=== PATIENT | female | born 1955 | race Two or more races ===

== ENCOUNTER 2016-09-24 01:06 | Inpatient (IN) | payer MEDICARE, MEDICAID ==
[~2016-09-24] VITALS: Ht 154.9 cm; Wt 88.0 kg
[~2016-09-24 01:06] MED LIST: BENA20TA2 PO; FURO40TA5 PO; LEVO50TA8 PO; MYCO500T PO; OMEP20CA10 PO; SIMV40TA5 PO; TACR1CAP PO; TOPI50TA24 PO
--- NOTE | 2016-09-24 02:07 | NUR ---
Patient walked in to ER c/o chest pain for the past 40 minutes prior to arrival. Patient states the pain woke her from sleep. Patient is guamanian speaking only, and son at bedside. To room 5A, BILLY performed MSE.
[2016-09-24] MEDS ORDERED: PROGRAF 1 MG (02:10)
[2016-09-24] MEDS ORDERED: PAK SQ (02:10)
[2016-09-24] MEDS ORDERED: [UNRECOGNIZED DRUG - REMARK] (02:10)
[2016-09-24] MEDS ORDERED: VICTOZA SQ (02:10)
[2016-09-24] MEDS ORDERED: NITROGLYCERIN 0.4 MG/TAB BOTTLE SL ONE ×2 (02:15→02:24)
[2016-09-24] MEDS ORDERED: NITROGLYCERIN OINT 1 GM PACKET TP ONE ×2 (02:15→02:24)
[2016-09-24] MEDS ORDERED: ASPIRIN 81 MG TAB.CHEW PO ONE (02:15)
[2016-09-24 02:19] LABS: BASOPHILS # (AUTO) 0.1 K/uL (0.0-8.0); BASOPHILS % (AUTO) 0.6 % (0.0-2.0); EOSINOPHILS # (AUTO) 0.3 K/uL (0.0-0.7); EOSINOPHILS % (AUTO) 2.2 % (0.0-7.0); HEMATOCRIT 41.3 % (37-47); HEMOGLOBIN 13.4 G/DL (12.0-16.0); LYMPHOCYTES # (AUTO) 3.8 K/UL (0.8-4.8); LYMPHOCYTES % (AUTO) 28.4 % (20.5-51.5); MEAN CORPUSCULAR HEMOGLOBIN 26.5 UUG (27.0-31.0); MEAN CORPUSCULAR HGB CONC 33 g/dL (32.0-37.0); MEAN CORPUSCULAR VOLUME 81.4 FL (81.0-99.0); MONOCYTES % (AUTO) 7.3 % (0.0-11.0); NEUTROPHILS # (AUTO) 8.3 K/UL (1.8-8.9); NEUTROPHILS % (AUTO) 61.5 % (38.5-71.5); PLATELET COUNT (AUTO) 324 K/UL (150-450); RED BLOOD CELL COUNT(AUTO) 5.07 MIL/UL (4.2-5.4); WHITE BLOOD COUNT (AUTO) 13.5 K/UL (4.0-11.2)
[2016-09-24] MEDS ORDERED: ASPIRIN 81 MG TAB.CHEW ONE (02:24)
[2016-09-24] MEDS ORDERED: HYDROMORPHONE 1 MG/1 ML DISP.SYRIN IV ONE (02:45)
[2016-09-24] MEDS ORDERED: ONDANSETRON IV *ER 4 MG/2 ML VIAL IV ONE (02:45)
[2016-09-24 02:50] LABS: BILIRUBIN,DIRECT 0.1 mg/dL (0.0-0.2); BILIRUBIN,TOTAL 0.5 mg/dL (0.2-1.0); CREATININE 0.9 mg/dL (0.6-1.3); POTASSIUM 3.8 mmol/L (3.5-5.1); TOTAL PROTEIN, SERUM 8.5 g/dL (6.4-8.2)
[2016-09-24] MEDS ORDERED: HYDROMORPHONE 2 MG/1 ML DISP.SYRIN ONE (02:55)
[2016-09-24] MEDS ORDERED: ONDANSETRON 4 MG/2 ML VIAL ONE (02:56)
--- NOTE | 2016-09-24 03:13 | NUR ---
Call placed to [facility] nephrology, Dr. ARNETT will be paged.
--- NOTE | 2016-09-24 03:55 | NUR ---
Received admission report from KAYLIN Monet from ER.
[2016-09-24] MEDS ORDERED: IV NORMAL SALINE 500 ML IV ONE ×2 (04:06→12:15)
[2016-09-24] MEDS ORDERED: LEVOFLOXACIN 500 MG/D5W 100 ML ONE (04:12)
[2016-09-24] MEDS ORDERED: LEVOFLOXACIN 500 MG/D5W 500 MG in PREMIXED 1 EACH IV SCH (04:15)
[2016-09-24 05:05] VITALS: BP 96/57
--- NOTE | 2016-09-24 05:10 | NUR ---
Admitted patient from ER via guerney, accompanied by and son to interpret. Awake, East Timorese speaking, who denies CP/pain/discomforts at this time. Routine admission care done. Plan of care initiated.
--- NOTE | 2016-09-24 05:12 | NUR ---
Pt. admitted to TELE, under care of Dr. ARNETT Belongs List completed
--- NOTE | 2016-09-24 06:30 | NUR ---
Left message for Dr. Shanks for admitting orders. Awaiting MD to call back.
--- NOTE | 2016-09-24 07:42 | NUR ---
RECEIVED PATIENT IN BED AWAKE ALERT AND ORIENTED WITH O2 IN PROGRESS AT 3L/M WITH NO S/S OF SHORTNESS OF BREATH AT THIS TIME.DENIES PAIN OR DISCOMFORTS AT THIS TIME.TELE MONITORING IN PROGERSS SINUS WITH NO ECTOPY.AWAITING FOR RETURN CALL FROM THE RENAL GROUP TO RECONCILE MEDICATIONS AT THIS TIME.
--- NOTE | 2016-09-24 07:57 | NUR ---
CALL RECEIVED FROM DR ARNETT WITH NEW ORDERS AND NOTED.
--- NOTE | 2016-09-24 08:30 | NUR ---
PATIENT STATED THAT SHE FELT ITCHING ON HER ARM AND HEAD STATED THAT IT MIGHT BE AN ALLERGIC REACTION FROM THE LEVAQUIN SON AND AT THE BEDSIDE AND STATED THAT SHE WAS ALLERGIC TO SOME MEDICATION AT ANOTHER HOSPITAL BUT DOES NOT KNOW THE NAME. ACCESSED PATIENT NOTED MINIMAL SCRATCH ON HER RIGHT ARM BUT NO OTHER REDNESS OR SCRATCHES AT THIS TIME.PATIENT STATED THAT THE ITCHING WAS FOR A VERY SHORT PERIOD AND HAS SINCE STOPPED.PATIENT INFORMED THAT I WILL NOTIFY THE DOCTOR ABOUT THIS AND WILL CONTINUE TO OBSERVE AND FOR HER TO LET ME KNOW IF THE ITCHING REOCCURS AND THEY EXPRESSED UNDERSTANDING.
[2016-09-24] MEDS ORDERED: TACROLIMUS ANHYDROUS 1 MG CAPSULE PO SCH ×3 (09:30→21:00)
[2016-09-24] MEDS: MYCOPHENOLATE MOFETIL 250 MG CAPSULE PO SCH ×2 (10:29→20:16)
[2016-09-24] MEDS: FUROSEMIDE 40 MG TABLET PO SCH (10:29)
[2016-09-24] MEDS: TOPIRAMATE 25 MG TABLET PO SCH ×2 (10:30→20:17)
--- NOTE | 2016-09-24 11:45 | NUR ---
DR SHANNAN EDWARD HERE TO SEE PATIENT AWARE THAT SHE HAD COMPLAINED OF THE LEVAQUIN WITH POSSIBLE ALLERGIC REACTION AND HE STATED THAT ITS NOT ALLERGIC REACTION PATIENT AWARE.
[2016-09-24] MEDS ORDERED: IV NS 1000 ML 1,000 ML IV PRN (11:46)
[2016-09-24 11:48] VITALS: BP 102/61
[2016-09-24] MEDS: PIPERACILLIN/TAZOBACTAM/D5W 3.375 G in PREMIXED 1 EACH IV SCH ×2 (12:18→20:07)
[2016-09-24] MEDS ORDERED: TACR0.5C GT (13:20)
[2016-09-24] MEDS: VICTOZA 18 MG/3 ML SQ SCH (14:05)
[2016-09-24] MEDS: PREFILLED SQ SCH (14:05)
[2016-09-24 16:12] VITALS: BP 108/71
[2016-09-24] MEDS: BENAZEPRIL HCL 20 MG TABLET PO SCH (16:12)
--- NOTE | 2016-09-24 18:00 | NUR ---
REMAIN ON IV ANTIBIOTICS ORDERED WITH NO ADVERSE OR ALLERGIC REACTIONS AT THIS TIME.RESTING COMFORTABLY.
--- NOTE | 2016-09-24 19:30 | NUR ---
Bedside reporting with USZANNE Antunez. Received patient out of bed, ambulating to the bathroom independently, steady gait. Denies any CP/SOB/SOBOE at this time. at bedside. Safety measures and fall precaution maintained. Continue care as planned.
[2016-09-24 20:00] VITALS: BP 100/59
[2016-09-24] MEDS ORDERED: TACROLIMUS ANHYDROUS 0.5 MG CAPSULE PO SCH (21:00)
[2016-09-24] MEDS ORDERED: SIMVASTATIN 40 MG TABLET PO SCH (21:00)
[2016-09-25] VITALS: BP 97/59
[2016-09-25] MEDS: PIPERACILLIN/TAZOBACTAM/D5W 3.375 G in PREMIXED 1 EACH IV SCH ×2 (04:05→12:07)
[2016-09-25] MEDS ORDERED: LEVOFLOXACIN 500 MG/D5W 500 MG in PREMIXED 1 EACH IV SCH (05:00)
[2016-09-25 05:28] VITALS: BP 102/53
--- NOTE | 2016-09-25 06:26 | NUR ---
Slept well. No complaint presented. Continue on IVPB ATB without s/s of adverse reaction noted. All needs attended and met. Continue care as planned.
[2016-09-25] MEDS ORDERED: LEVOTHYROXINE SODIUM 50 MCG TABLET PO SCH ×2 (07:00)
[2016-09-25] MEDS ORDERED: PANTOPRAZOLE SODIUM 40 MG TABLET.DR PO SCH (07:00)
--- NOTE | 2016-09-25 08:00 | NUR ---
AWAKE ALERT AND ORIENTED DENIES PAIN OR DISCOMFORTS AT THIS TIME REMAIN ON IV ANTIBIOTICS ORDERED WITH NO ADVERSE OR ALLERGIC REACTIONS AT THIS TIME.NOT IN DISTRESS AT THIS TIME.
[2016-09-25] MEDS: BENAZEPRIL HCL 20 MG TABLET PO SCH (09:00)
[2016-09-25] MEDS ORDERED: MISCELLANEOUS MED PO SCH (09:00)
[2016-09-25] MEDS ORDERED: TACROLIMUS ANHYDROUS 1 MG CAPSULE PO SCH (09:00)
[2016-09-25] MEDS: MYCOPHENOLATE MOFETIL 250 MG CAPSULE PO SCH (09:03)
[2016-09-25] MEDS: TOPIRAMATE 25 MG TABLET PO SCH (09:03)
[2016-09-25] MEDS: FUROSEMIDE 40 MG TABLET PO SCH (09:04)
[2016-09-25] MEDS: VICTOZA 18 MG/3 ML SQ SCH (09:07)
[2016-09-25] MEDS: PREFILLED SQ SCH (09:07)
[2016-09-25 11:45] VITALS: BP 111/65
--- NOTE | 2016-09-25 13:34 | NUR ---
DR MICHAEL HERE TO SEE PATIENT AWAITING FOR ORDERS PATIENT AND HER SON AT THE BEDSIDE AND ANXIOUS ABOUT GOING HOME TODAY.
[2016-09-25] MEDS ORDERED: AMOX-430 PO (13:36)
--- NOTE | 2016-09-25 13:45 | NUR ---
ORDER TO DISCHARGE PATIENT HOME TODAY RECEIVED AND CARRIES OUT.PATIENTS LUANN JEREZ IS AT THE BEDSIDE AND STATED WILL DRIVE HIS MOM HOME.
--- NOTE | 2016-09-25 14:15 | NUR ---
PATIENT DISCHARGED PICKED UP BY HER SON ART IN SATISFACTORY CONDITION WITH DISCHARGE INSTRUCTIONS AND PRESCRIPTIONS AND PATIENT INSTRUCTED TO CONTINUE TAKING HER MEDICATIONS ORDERED AND CALL HER PRIMARY DOCTOR FOR A FOLLOW UP APPOINTMENT WITHIN THE NEXT ONE TO TWO WEEKS AND THEY EXPRESSED UNDERSTANDING.
== END 2016-09-25 14:15 | disposition home or self-care (01) | DRG 178 ==
LOC: ER 01:09 → TELE 04:02 → MED 09-25 12:25
PROVIDERS: ADMIT Internal Medicine; ATTEND Internal Medicine Nephrology
DX: J69.0 Pneumonitis due to inhalation of food and vomit (principal); Z94.0 Kidney transplant status; I95.2 Hypotension due to drugs; K21.9 Gastro-esophageal reflux disease without esophagitis; Z85.3 Personal history of malignant neoplasm of breast; Z90.11 Acquired absence of right breast and nipple; Z79.899 Other long term (current) drug therapy; E11.9 Type 2 diabetes mellitus without complications; T46.3X5A Adverse effect of coronary vasodilators, initial encounter; Y92.230 Patient room in hospital as the place of occurrence of the external cause
CPT/HCPCS: 36415; 70030-TC; 71010; 84443; 85025; 85730; 87040; 93005; 93307; A4663; J1170; J1956; J2405; J2543; J7040; J7050; J7507; J7517

== ENCOUNTER 2018-07-22 18:12 | Inpatient (IN) | payer MEDICARE, MEDICAID ==
[~2018-07-22] VITALS: Ht 154.9 cm; Wt 86.2 kg
[~2018-07-22 18:12] MED LIST changes: +AMOX-430 PO; -BENA20TA2 PO; +BENA20TA9 PO; +PAK SQ; +TACR0.5C GT; +VICTOZA SQ
--- NOTE | 2018-07-22 18:22 | NUR ---
PT A/OX4, PRESENTS TO THE ER W/ SON, C/O GLF X 3 DAYS AGO. PT REPORTS SHE HIT THE BACK OF HER HEAD FROM THE FALL, BUT DENIES LOC. PT ALSO C/O HEADACHE, N/V. VS WNL. PT DENIES C/P, SOB.
--- NOTE | 2018-07-22 18:23 | NUR ---
KAN MAIER AT BEDSIDE FOR MSE.
--- NOTE | 2018-07-22 18:42 | NUR ---
PT TAKEN TO RADIOLOGY FOR CT SCAN.
[2018-07-22 18:49] LABS: BASOPHILS # (AUTO) 0.1 K/uL (0.0-8.0); BASOPHILS % (AUTO) 0.5 % (0.0-2.0); EOSINOPHILS # (AUTO) 0.2 K/uL (0.0-0.7); EOSINOPHILS % (AUTO) 1.7 % (0.0-7.0); HEMATOCRIT 35.6 % (31.2-41.9); HEMOGLOBIN 11.2 g/dL (10.9-14.3); LYMPHOCYTES # (AUTO) 3.6 K/uL (20.0-40.0); LYMPHOCYTES % (AUTO) 29.1 % (20.5-51.5); MEAN CORPUSCULAR HEMOGLOBIN 25.8 uug (24.7-32.8); MEAN CORPUSCULAR HGB CONC 31 g/dL (32.3-35.6); MONOCYTES # (AUTO) 1.1 K/uL (2.0-10.0); MONOCYTES % (AUTO) 9.2 % (0.0-11.0); NEUTROPHILS # (AUTO) 7.4 K/uL (1.8-8.9); NEUTROPHILS % (AUTO) 59.5 % (38.5-71.5); PLATELET COUNT (AUTO) 327 K/uL (179-408); RED BLOOD CELL COUNT(AUTO) 4.35 MIL/uL (3.63-4.92); WHITE BLOOD COUNT (AUTO) 12.5 K/uL (3.8-11.8)
--- NOTE | 2018-07-22 18:55 | NUR ---
PT BACK IN ER FROM RADIOLOGY.
--- NOTE | 2018-07-22 19:12 | NUR ---
SHIFT REPORT GIVEN TO CAMMY Goff RN.
[2018-07-22] MEDS ORDERED: IV NORMAL SALINE 500 ML BAG IV ONE (19:15)
[2018-07-22 19:38] LABS: *BILIRUBIN,URIN NEGATIVE (NEGATIVE); *CLARITY,URINE CLEAR (CLEAR); *COLOR,URINE YELLOW (YELLOW); *KETONES,URINE NEGATIVE (NEGATIVE); *UROBILINOGEN,URINE 0.2 E.U./dl (NORMAL); LEUKOCYTE ESTERASE ,URINE 1+ (NEGATIVE); NITRITE, URINE NEGATIVE (NEGATIVE); UGLUCOSE NEGATIVE (NEGATIVE)
[2018-07-22 19:39] LABS: *BLOOD, URINE TRACE (NEGATIVE)
--- NOTE | 2018-07-22 19:40 | NUR ---
pt back from ct is alert and oriented overall appearances fair stated she fell a few days again trying to go to the br at night don't remember anything from this incident is c/o chavarria will inform md family at bedside comfort and safety maintained
[2018-07-22 19:45] LABS: BACTERIA,URINE FEW /HPF (NONE SEEN); RBC,URINE 0-3 /HPF (0-3); SQUAMOUS EPITHELIAL CELL,UR MODERATE /HPF (NONE SEEN)
[2018-07-22 19:50] LABS: ALANINE AMINOTRANSFERASE 27 U/L (14-59); ALKALINE PHOSPHATASE 102 U/L (50-136); ASPARTATE AMINOTRANSFERASE 9 U/L (15-37); BILIRUBIN,DIRECT < 0.1 mg/dL (0.0-0.2); BILIRUBIN,TOTAL 0.2 mg/dL (0.2-1.0); TOTAL PROTEIN, SERUM 7.6 g/dL (6.4-8.2)
[2018-07-22] MEDS ORDERED: ACETAMINOPHEN ES 500 MG TABLET ONE (20:10)
[2018-07-22] MEDS ORDERED: ACETAMINOPHEN ES 500 MG TABLET PO ONE (20:15)
[2018-07-22] MEDS ORDERED: OMEP40CA37 PO (20:36)
[2018-07-22] MEDS ORDERED: DULA1.5P SQ (20:36)
[2018-07-22] MEDS ORDERED: SITA50TA PO (20:36)
[2018-07-22] MEDS ORDERED: MYCO500T PO (20:36)
[2018-07-22] MEDS ORDERED: PRED2.5T PO (20:36)
[2018-07-22] MEDS ORDERED: TACR1CAP PO (20:36)
--- NOTE | 2018-07-22 21:12 | NUR ---
was med time one with tylenol earlier denies allergy with effect comfort and safety maintained
--- NOTE | 2018-07-22 21:45 | NUR ---
report given to nurse all questions answered pt condition remains stable
--- NOTE | 2018-07-22 21:50 | NUR ---
pt transfer to room 317 via dmitri all personal belongings with pt family at her side
[2018-07-22] MEDS ORDERED: ACETAMINOPHEN 325 MG TABLET PO PRN (22:00)
[2018-07-22] MEDS ORDERED: ONDANSETRON 4 MG/2 ML VIAL IV PRN (22:00)
--- NOTE | 2018-07-22 22:00 | NUR ---
Received patient awake, alert and oriented x 4, able to ambulate with assist. Patient indonesian speaking only. On room air, tolerated. With IV access on left antecubital vein, 20g, patent and intact. No complaints at the moment. Patient brought home medications with her will send to pharmacy in the morning. Patient oriented to unit with help of indonesian speaking INBOUND CUSTOMER SERVICE AGENT. Bed in low position, locked, side rails up x 2 for safety, call light within reach. Noise and lights subdued. Will continue to monitor.
[2018-07-22 22:27] VITALS: BP 163/79
[2018-07-23 00:09] VITALS: BP 134/67
[2018-07-23] MEDS ORDERED: CEphaleXIN 500 MG CAPSULE ONE (00:50)
[2018-07-23] MEDS ORDERED: CEphaleXIN 500 MG CAPSULE PO ONE (01:45)
[2018-07-23 04:24] VITALS: BP 126/70
--- NOTE | 2018-07-23 06:10 | NUR ---
Patient slept well throughout the night, afebrile and no complaints made. Patient was given one dose of Keflex last night per Dr. Frias from ED for UTI. Attended all needs. Ensured safety and comfort.
[2018-07-23 06:13] LABS: BASOPHILS # (AUTO) 0.1 K/uL (0.0-8.0); BASOPHILS % (AUTO) 0.7 % (0.0-2.0); EOSINOPHILS # (AUTO) 0.4 K/uL (0.0-0.7); EOSINOPHILS % (AUTO) 3.9 % (0.0-7.0); HEMATOCRIT 37.6 % (31.2-41.9); HEMOGLOBIN 11.6 g/dL (10.9-14.3); LYMPHOCYTES # (AUTO) 3.1 K/uL (20.0-40.0); LYMPHOCYTES % (AUTO) 29.2 % (20.5-51.5); MEAN CORPUSCULAR HEMOGLOBIN 25.5 uug (24.7-32.8); MEAN CORPUSCULAR HGB CONC 31 g/dL (32.3-35.6); MEAN CORPUSCULAR VOLUME 82.4 fL (75.5-95.3); MONOCYTES # (AUTO) 1.1 K/uL (2.0-10.0); MONOCYTES % (AUTO) 10.2 % (0.0-11.0); NEUTROPHILS # (AUTO) 5.9 K/uL (1.8-8.9); PLATELET COUNT (AUTO) 321 K/uL (179-408); RED BLOOD CELL COUNT(AUTO) 4.56 MIL/uL (3.63-4.92); WHITE BLOOD COUNT (AUTO) 10.6 K/uL (3.8-11.8)
[2018-07-23 06:28] LABS: MAGNESIUM 1.8 mg/dL (1.8-2.4); PHOSPHOROUS 4.1 mg/dL (2.5-4.9)
[2018-07-23] MEDS ORDERED: LEVOTHYROXINE SODIUM 100 MCG TABLET PO SCH (07:00)
[2018-07-23] MEDS ORDERED: predniSONE 5 MG TABLET PO SCH (09:00)
[2018-07-23] MEDS ORDERED: TACROLIMUS ANHYDROUS 0.5 MG CAPSULE PO SCH (09:00)
[2018-07-23] MEDS ORDERED: MYCOPHENOLATE MOFETIL 250 MG CAPSULE PO SCH (09:00)
--- NOTE | 2018-07-23 11:00 | NUR ---
RECEIVED DISCHARGE ORDER FOR PATIENT AND PATIENT DISCHARGE VIA PRIVATE CAR WITH , DISCHARGE INSTRUCTIONS GIVEN TO PATIENT AND VERBALIZED UNDERSTANDING, IV AND ID BAND REMOVED, NO SOB NOTED AT THIS TIME AND NO C/O PAIN AT THIS TIME. BELONGINGS AND MEDICATIONS ACCOUNTED FOR SIGNED. QUESTIONS AND CONCERNS ADDRESSED.
== END 2018-07-23 11:00 | disposition home health service (06) | DRG 74 ==
LOC: ER 18:12 → TELE3 21:24
PROVIDERS: ADMIT Internal Medicine; ATTEND Internal Medicine Nephrology
DX: G90.8 Other disorders of autonomic nervous system (principal); Z94.0 Kidney transplant status; E11.9 Type 2 diabetes mellitus without complications; Z90.11 Acquired absence of right breast and nipple; Z79.890 Hormone replacement therapy; Z85.3 Personal history of malignant neoplasm of breast; Z79.899 Other long term (current) drug therapy; K21.9 Gastro-esophageal reflux disease without esophagitis; I11.0 Hypertensive heart disease with heart failure; I50.9 Heart failure, unspecified; R29.6 Repeated falls; R42 Dizziness and giddiness; Z79.84 Long term (current) use of oral hypoglycemic drugs; D18.09 Hemangioma of other sites; Z68.35 Body mass index [BMI] 35.0-35.9, adult; R51 Headache; F32.9 Major depressive disorder, single episode, unspecified
CPT/HCPCS: 36415; 70030-TC; 70450; 71045; 72125; 83605; 83735; 84100; 85025; 85730; 87040; 87077; 87086; 93005; A4663; A9150; G0378; J7507; J7512; J7517

== ENCOUNTER 2019-05-11 17:50 | Inpatient (IN) | payer MEDICARE, OTHER ==
[~2019-05-11] VITALS: Ht 154.9 cm; Wt 85.3 kg
[2019-05-11] MEDS ORDERED: IV NORMAL SALINE 500 ML BAG IV ONE (18:00)
[2019-05-11 18:22] LABS: BASOPHILS % (AUTO) 0.3 % (0.0-2.0); EOSINOPHILS # (AUTO) 0.1 K/uL (0.0-0.7); EOSINOPHILS % (AUTO) 0.4 % (0.0-7.0); HEMOGLOBIN 10.9 g/dL (10.9-14.3); LYMPHOCYTES # (AUTO) 2.1 K/uL (20.0-40.0); LYMPHOCYTES % (AUTO) 15.4 % (20.5-51.5); MEAN CORPUSCULAR HEMOGLOBIN 25.9 uug (24.7-32.8); MEAN CORPUSCULAR HGB CONC 32 g/dL (32.3-35.6); MEAN CORPUSCULAR VOLUME 80.7 fL (75.5-95.3); MONOCYTES # (AUTO) 1.4 K/uL (2.0-10.0); MONOCYTES % (AUTO) 10.5 % (0.0-11.0); NEUTROPHILS % (AUTO) 73.4 % (38.5-71.5); PLATELET COUNT (AUTO) 304 K/uL (179-408); RED BLOOD CELL COUNT(AUTO) 4.21 MIL/uL (3.63-4.92); WHITE BLOOD COUNT (AUTO) 13.6 K/uL (3.8-11.8)
--- NOTE | 2019-05-11 18:25 | NUR ---
PT IS IN ROOM #2A. DR KOHLER EVALUATED THE PT.
[2019-05-11 18:29] LABS: CREATININE 1.4 mg/dL (0.6-1.3); POTASSIUM 4.5 mmol/L (3.5-5.1)
[2019-05-11 18:31] LABS: *BILIRUBIN,URIN NEGATIVE (NEGATIVE); *CLARITY,URINE SLIGHTLY CLOUDY (CLEAR); *COLOR,URINE YELLOW (YELLOW); *KETONES,URINE NEGATIVE (NEGATIVE); *UROBILINOGEN,URINE 0.2 E.U./dl (NORMAL); LEUKOCYTE ESTERASE ,URINE 1+ (NEGATIVE); NITRITE, URINE NEGATIVE (NEGATIVE); PH,URINE 5.5 (5.0-8.0); UGLUCOSE 2+ (NEGATIVE)
[2019-05-11 18:34] LABS: BILIRUBIN,DIRECT 0.2 mg/dL (0.0-0.2); BILIRUBIN,TOTAL 0.4 mg/dL (0.2-1.0); TOTAL PROTEIN, SERUM 7.5 g/dL (6.4-8.2)
[2019-05-11] MEDS ORDERED: INSULIN REGULAR, HUMAN 300 UNIT/3 ML VIAL IV ONE (18:45)
[2019-05-11] MEDS ORDERED: POTASSIUM CHLORIDE 20 MEQ TAB.PRT.SR PO ONE (18:45)
[2019-05-11 18:54] LABS: *BLOOD, URINE TRACE (NEGATIVE)
[2019-05-11] MEDS ORDERED: INSULIN REGULAR, HUMAN 300 UNIT/3 ML VIAL ONE (18:54)
[2019-05-11] MEDS ORDERED: POTASSIUM CHLORIDE 20 MEQ TAB.PRT.SR ONE (18:54)
[2019-05-11 18:55] LABS: BACTERIA,URINE FEW /HPF (NONE SEEN); SQUAMOUS EPITHELIAL CELL,UR MODERATE /HPF (NONE SEEN); WBC,URINE 20-50 /HPF (0-3)
[2019-05-11] MEDS ORDERED: CEFTRIAXONE 1 G in IV DEXTROSE 5% 50 ML IV ONE (19:00)
[2019-05-11] MEDS ORDERED: HYDROMORPHONE 1 MG/1 ML DISP.SYRIN IV ONE ×2 (19:00→20:15)
[2019-05-11] MEDS ORDERED: ONDANSETRON 4 MG/2 ML VIAL IV ONE (19:00)
[2019-05-11] MEDS ORDERED: HYDROMORPHONE 1 MG/1 ML DISP.SYRIN ONE ×2 (19:08→20:14)
[2019-05-11] MEDS ORDERED: ONDANSETRON 4 MG/2 ML VIAL ONE (19:08)
[2019-05-11] MEDS ORDERED: CEFTRIAXONE /D5W 50ML IVPB **ER PYXIS IV ONE (19:09)
--- NOTE | 2019-05-11 19:38 | NUR ---
CALLED [facility]
--- NOTE | 2019-05-11 19:40 | NUR ---
Dr. Bateman on the phone with Dr. Singh
--- NOTE | 2019-05-11 19:45 | NUR ---
Pt. admitted to [facility] , under care of Dr. Singh Belongs List completed
--- NOTE | 2019-05-11 21:30 | NUR ---
admitted, female with chief complaine of abdominal pain,. oriented to floor, called dr treviño for orders.no complaints of abdominal paqin.
[2019-05-11 21:44] VITALS: BP 107/81
[2019-05-11] MEDS ORDERED: DEXTROSE 50% 50 ML DISP.SYRIN IV PRN (23:30)
[2019-05-11] MEDS ORDERED: MAGNESIUM HYDROXIDE 30 ML LIQUID UDC PO PRN (23:30)
[2019-05-11] MEDS ORDERED: Z GUARD REMEDY PASTE 57 GM TUBE TOP PRN (23:30)
[2019-05-11] MEDS ORDERED: ACETAMINOPHEN 325 MG TABLET PO PRN (23:30)
[2019-05-11] MEDS ORDERED: ZOLPIDEM 5 MG TABLET PO PRN (23:30)
[2019-05-11] MEDS ORDERED: ONDANSETRON 4 MG/2 ML VIAL IV PRN (23:30)
[2019-05-12 05:41] VITALS: BP 120/72
[2019-05-12 06:10] LABS: BASOPHILS % (AUTO) 0.3 % (0.0-2.0); EOSINOPHILS # (AUTO) 0.2 K/uL (0.0-0.7); EOSINOPHILS % (AUTO) 1.5 % (0.0-7.0); HEMATOCRIT 33.3 % (31.2-41.9); HEMOGLOBIN 10.6 g/dL (10.9-14.3); LYMPHOCYTES # (AUTO) 2.7 K/uL (20.0-40.0); LYMPHOCYTES % (AUTO) 19.5 % (20.5-51.5); MEAN CORPUSCULAR HGB CONC 32 g/dL (32.3-35.6); MEAN CORPUSCULAR VOLUME 81.2 fL (75.5-95.3); MONOCYTES # (AUTO) 1.5 K/uL (2.0-10.0); NEUTROPHILS # (AUTO) 9.4 K/uL (1.8-8.9); NEUTROPHILS % (AUTO) 67.7 % (38.5-71.5); PLATELET COUNT (AUTO) 296 K/uL (179-408)
[2019-05-12 06:26] LABS: CREATININE 1.1 mg/dL (0.6-1.3); MAGNESIUM 1.9 mg/dL (1.8-2.4); PHOSPHOROUS 2.6 mg/dL (2.5-4.9); POTASSIUM 4.4 mmol/L (3.5-5.1)
--- NOTE | 2019-05-12 06:34 | NUR ---
SLEPT MOST OF THE NITE , NO COMPLAINTS MADE, VITAL SIGNS STABLE.
[2019-05-12 06:39] LABS: URIC ACID 6.6 mg/dL (2.6-6.0)
[2019-05-12] MEDS: LEVOTHYROXINE SODIUM 50 MCG TABLET PO SCH (06:45)
--- NOTE | 2019-05-12 07:00 | NUR ---
Received patient in bed asleep, arousable to name. Yoruba speaking but could understand little Burkinan. On room air with no complaints and signs of SOB. IV site on left AC 18g clean and patent. Able to move and position around bed. Complained of right abdominal pain 4/10, but did not want any medications. Cellphone and call light within reach. Bed locked in lowest position with siderails 2x up. Will continue to monitor.
[2019-05-12] MEDS: BLOOD SUGAR DIAGNOSTIC 1 EACH STRIP VI SCH ×4 (07:51→20:55)
[2019-05-12] MEDS: PANTOPRAZOLE SODIUM 40 MG TABLET.DR PO SCH (08:15)
[2019-05-12] MEDS: TACROLIMUS ANHYDROUS 0.5 MG CAPSULE PO SCH ×2 (08:15→16:40)
[2019-05-12] MEDS: predniSONE 2.5 MG TABLET PO SCH (08:16)
[2019-05-12] MEDS: MYCOPHENOLATE MOFETIL 250 MG CAPSULE PO SCH ×2 (08:16→16:40)
[2019-05-12] MEDS: HYDROCODONE/APAP 5-325MG TABLET PO PRN (08:18)
[2019-05-12] MEDS: INSULIN REGULAR, HUMAN 300 UNIT/3 ML VIAL SQ PRN ×4 (08:23→20:57)
--- NOTE | 2019-05-12 08:45 | NUR ---
Patient complained of 6/10 right abdominal pain, now requested for med. Cullen PRN given as ordered with relief.
[2019-05-12 08:51] LABS: THYROID STIMULATING HORMONE 0.777 mIU/mL (0.358-3.740)
[2019-05-12] MEDS ORDERED: TACROLIMUS ANHYDROUS 1 MG CAPSULE PO SCH (09:00)
[2019-05-12] MEDS ORDERED: MEROPENEM 1 G in IV NORMAL SALINE 100 ML IV SCH (11:15)
[2019-05-12 11:59] VITALS: BP 110/63
[2019-05-12] MEDS: MEROPENEM 1 G in IV NORMAL SALINE 100 ML IV SCH ×2 (13:04→20:54)
[2019-05-12 16:15] VITALS: BP 129/82
--- NOTE | 2019-05-12 18:50 | NUR ---
Patient in bed asleep but arousable to name. No complains of pain at this time and looked comfortable. Patient stated that she walked to bathroom to pee with no issues. Bed locked in lowest position with siderails 2x up. Call light and cellphone within reach. Will endorse to next shift.
[2019-05-12] MEDS ORDERED: CEFTRIAXONE 1 G in IV DEXTROSE 5% 50 ML IV SCH (19:00)
--- NOTE | 2019-05-12 19:50 | NUR ---
PATIENT ALERT ORIENTED, SPEAK SETSWANA BUT UNDERSTAND ZIMBABWEAN. PATIENT HAS NO S/S OF SOB NO CHEST PAIN. PATIENT DENIES PAIN AT THIS TIME. V/S STABLE, CONT TO MONITOR.
[2019-05-12 20:00] VITALS: BP 123/64
[2019-05-12] MEDS ORDERED: ZOLPIDEM 5 MG TABLET PO SCH (21:00)
[2019-05-13] MEDS: MEROPENEM 1 G in IV NORMAL SALINE 100 ML IV SCH ×3 (04:11→20:07)
[2019-05-13] MEDS: HYDROCODONE/APAP 5-325MG TABLET PO PRN (04:42)
[2019-05-13 05:15] VITALS: BP 148/99
[2019-05-13] MEDS: LEVOTHYROXINE SODIUM 50 MCG TABLET PO SCH (06:03)
[2019-05-13] MEDS: BLOOD SUGAR DIAGNOSTIC 1 EACH STRIP VI SCH ×4 (06:03→20:14)
--- NOTE | 2019-05-13 06:43 | NUR ---
PATIENT AWAKE ALERT ORIENTED, SPEAK ARMENIAN, COMPLAIN OF R ABDOMEN PAIN, MEDICATED WITH PAIN WITH EFFECTIVE RESULTS, PATIENT CONTINENT OF BLADDER, WITH MIN ASSIST. CONT TO MONITOR.
[2019-05-13 06:54] LABS: BASOPHILS # (AUTO) 0.1 K/uL (0.0-8.0); BASOPHILS % (AUTO) 0.5 % (0.0-2.0); EOSINOPHILS # (AUTO) 0.3 K/uL (0.0-0.7); EOSINOPHILS % (AUTO) 1.9 % (0.0-7.0); HEMATOCRIT 33.7 % (31.2-41.9); HEMOGLOBIN 10.7 g/dL (10.9-14.3); LYMPHOCYTES # (AUTO) 2.7 K/uL (20.0-40.0); LYMPHOCYTES % (AUTO) 19.5 % (20.5-51.5); MEAN CORPUSCULAR HEMOGLOBIN 25.4 uug (24.7-32.8); MEAN CORPUSCULAR HGB CONC 32 g/dL (32.3-35.6); MONOCYTES # (AUTO) 1.4 K/uL (2.0-10.0); MONOCYTES % (AUTO) 10.1 % (0.0-11.0); NEUTROPHILS # (AUTO) 9.4 K/uL (1.8-8.9); PLATELET COUNT (AUTO) 341 K/uL (179-408); RED BLOOD CELL COUNT(AUTO) 4.21 MIL/uL (3.63-4.92); WHITE BLOOD COUNT (AUTO) 13.9 K/uL (3.8-11.8)
[2019-05-13 07:11] LABS: BILIRUBIN,TOTAL 0.4 mg/dL (0.2-1.0); CREATININE 1.1 mg/dL (0.6-1.3); MAGNESIUM 1.5 mg/dL (1.8-2.4); PHOSPHOROUS 2.7 mg/dL (2.5-4.9); POTASSIUM 4.2 mmol/L (3.5-5.1); TOTAL PROTEIN, SERUM 7.2 g/dL (6.4-8.2)
--- NOTE | 2019-05-13 08:00 | NUR ---
received pt. resting in bed alert oriented x4. Portuguese speaking. pt. denies pain/ discomfort at this time. pt. denies SOB/ difficulty breathing. IV in L AC 18 gauge intact patent saline lock. Safety measures in place. call light within reach. will continue to monitor pt
[2019-05-13] MEDS: TACROLIMUS ANHYDROUS 0.5 MG CAPSULE PO SCH ×2 (08:12→16:42)
[2019-05-13] MEDS: predniSONE 2.5 MG TABLET PO SCH (08:12)
[2019-05-13] MEDS: PANTOPRAZOLE SODIUM 40 MG TABLET.DR PO SCH (08:12)
[2019-05-13] MEDS: MYCOPHENOLATE MOFETIL 250 MG CAPSULE PO SCH ×2 (08:12→16:42)
[2019-05-13] MEDS: INSULIN REGULAR, HUMAN 300 UNIT/3 ML VIAL SQ PRN ×4 (08:13→20:27)
[2019-05-13 11:00] VITALS: BP 144/82
[2019-05-13] MEDS: MAGNESIUM SULFATE/D5W 100 ML IV SCH ×2 (11:13→12:28)
--- NOTE | 2019-05-13 14:06 | NUR ---
previous IV leaking, removed IV. New IV in place on L forearm 22 gauge intact patent running prescribed fluids.
[2019-05-13 15:46] VITALS: BP 138/80
--- NOTE | 2019-05-13 19:00 | NUR ---
PATIENT ALERT SPEAK VENEZUELAN. PATIENT HAS NO COMPLAIN OF PAIN AT THIS TIME. CALL LIGHT WITHIN REACH.
[2019-05-13 20:32] VITALS: BP 145/83
[2019-05-14] MEDS: MEROPENEM 1 G in IV NORMAL SALINE 100 ML IV SCH (04:21)
[2019-05-14] MEDS: HYDROCODONE/APAP 5-325MG TABLET PO PRN (04:31)
[2019-05-14 05:32] VITALS: BP 142/84
[2019-05-14] MEDS: LEVOTHYROXINE SODIUM 50 MCG TABLET PO SCH (06:01)
[2019-05-14] MEDS: BLOOD SUGAR DIAGNOSTIC 1 EACH STRIP VI SCH (06:01)
[2019-05-14 06:58] LABS: MAGNESIUM 1.8 mg/dL (1.8-2.4); POTASSIUM 4.2 mmol/L (3.5-5.1)
[2019-05-14] MEDS: predniSONE 2.5 MG TABLET PO SCH (08:49)
[2019-05-14] MEDS: PANTOPRAZOLE SODIUM 40 MG TABLET.DR PO SCH (08:49)
[2019-05-14] MEDS: MYCOPHENOLATE MOFETIL 250 MG CAPSULE PO SCH (08:49)
[2019-05-14] MEDS: TACROLIMUS ANHYDROUS 0.5 MG CAPSULE PO SCH (08:49)
--- NOTE | 2019-05-14 11:00 | NUR ---
patient aox4, discharge order was given by , gave home meds i nstruction, called in pharmacy, remove heplock, patient waiting for family to pick her up
[2019-05-14 11:13] VITALS: BP 120/64
--- NOTE | 2019-05-14 11:29 | NUR ---
dc to home, aware
== END 2019-05-14 11:32 | disposition home health service (06) | DRG 698 ==
LOC: ER 17:57 → MEDSURG3 21:07
PROVIDERS: ADMIT Internal Medicine; ATTEND Internal Medicine
DX: T86.13 Kidney transplant infection (principal); N17.0 Acute kidney failure with tubular necrosis; N10 Acute pyelonephritis; E87.1 Hypo-osmolality and hyponatremia; Z85.3 Personal history of malignant neoplasm of breast; Z90.11 Acquired absence of right breast and nipple; Z79.899 Other long term (current) drug therapy; E11.65 Type 2 diabetes mellitus with hyperglycemia; E03.9 Hypothyroidism, unspecified; E78.5 Hyperlipidemia, unspecified; E86.1 Hypovolemia; F32.9 Major depressive disorder, single episode, unspecified; Z79.890 Hormone replacement therapy; Z87.891 Personal history of nicotine dependence; Z87.440 Personal history of urinary (tract) infections; K76.0 Fatty (change of) liver, not elsewhere classified; Y83.0 Surgical operation with transplant of whole organ as the cause of abnormal reaction of the patient, or of later complication, without mention of misadventure at the time of the procedure; I70.0 Atherosclerosis of aorta; I10 Essential (primary) hypertension; Y92.009 Unspecified place in unspecified non-institutional (private) residence as the place of occurrence of the external cause
CPT/HCPCS: 36415; 83605; 83690; 83735; 83970; 84100; 84300; 84443; 84480; 84550; 85025; 87040; 87086; 93005; A4663; G0378; J0696; J1170; J1815; J2185; J2405; J3475; J3490; J7040; J7050; J7060; J7507; J7512; J7517

== ENCOUNTER 2019-06-28 11:59 | Inpatient (IN) | payer MEDICARE, OTHER ==
[~2019-06-28] VITALS: Ht 160 cm; Wt 87.1 kg
[~2019-06-28 11:59] MED LIST changes: -AMOX-430 PO; -BENA20TA9 PO; +CEPH-570 PO; +DULA1.5P SQ; -FURO40TA5 PO; -OMEP20CA10 PO; +OMEP40CA13 PO; -PAK SQ; +PRED2.5T PO; -SIMV40TA5 PO; -TACR0.5C GT; -TACR1CAP PO; +TACR1CAP2 PO; -TOPI50TA24 PO; -VICTOZA SQ; +ZOLP5TAB8 PO
[2019-06-28 12:39] LABS: BASOPHILS # (AUTO) 0.1 K/uL (0.0-8.0); BASOPHILS % (AUTO) 0.4 % (0.0-2.0); EOSINOPHILS # (AUTO) 0.1 K/uL (0.0-0.7); EOSINOPHILS % (AUTO) 0.6 % (0.0-7.0); HEMATOCRIT 32.5 % (31.2-41.9); HEMOGLOBIN 10.4 g/dL (10.9-14.3); LYMPHOCYTES # (AUTO) 1.5 K/uL (20.0-40.0); LYMPHOCYTES % (AUTO) 7.4 % (20.5-51.5); MEAN CORPUSCULAR HEMOGLOBIN 25.6 uug (24.7-32.8); MEAN CORPUSCULAR HGB CONC 32 g/dL (32.3-35.6); MEAN CORPUSCULAR VOLUME 80.1 fL (75.5-95.3); MONOCYTES # (AUTO) 1.3 K/uL (2.0-10.0); MONOCYTES % (AUTO) 6.6 % (0.0-11.0); PLATELET COUNT (AUTO) 360 K/uL (179-408); RED BLOOD CELL COUNT(AUTO) 4.05 MIL/uL (3.63-4.92)
[2019-06-28] MEDS ORDERED: MORPHINE SULFATE 4 MG/1 ML DISP.SYRIN IV ONE (12:45)
[2019-06-28 12:51] LABS: CREATININE 1.9 mg/dL (0.6-1.3); POTASSIUM 4.1 mmol/L (3.5-5.1)
[2019-06-28] MEDS ORDERED: MORPHINE SULFATE 2 MG/1 ML DISP.SYRIN ONE (12:57)
[2019-06-28 12:58] LABS: BILIRUBIN,DIRECT 0.2 mg/dL (0.0-0.2); BILIRUBIN,TOTAL 0.5 mg/dL (0.2-1.0); TOTAL PROTEIN, SERUM 7.6 g/dL (6.4-8.2)
[2019-06-28] MEDS ORDERED: NITR50CA PO (13:47)
[2019-06-28] MEDS ORDERED: BENA20TA9 PO (13:47)
[2019-06-28] MEDS ORDERED: PRED-170 PO (13:47)
--- NOTE | 2019-06-28 13:49 | NUR ---
Initial home medication list done & updated with patient,still admitting MD/VETERANS EMPLOYMENT REPRESENTATIVE to reconcile with patient
--- NOTE | 2019-06-28 13:57 | NUR ---
Patient is resting comfortably on gurney@her left side , NAD
[2019-06-28] MEDS ORDERED: PIPERACILLIN SODIUM/TAZOBACTAM 3.375 G in IV DEXTROSE 5% 50 ML IV ONE (14:15)
[2019-06-28] MEDS ORDERED: IV NS 1000 ML 1,000 ML IV ONE (14:15)
[2019-06-28] MEDS ORDERED: PIPERACILLIN/TAZOBACTAM/D5W 50 ML IV ONE (14:16)
--- NOTE | 2019-06-28 14:57 | NUR ---
[facility] CALLED. DR MICHAEL LOCATION ANALYST WAITING FOR CALL BACK. IV ATB INFUSING.
[2019-06-28 15:29] LABS: *BILIRUBIN,URIN NEGATIVE (NEGATIVE); *BLOOD, URINE NEGATIVE (NEGATIVE); *CLARITY,URINE CLEAR (CLEAR); *COLOR,URINE YELLOW (YELLOW); *KETONES,URINE NEGATIVE (NEGATIVE); *UROBILINOGEN,URINE 0.2 E.U./dl (NORMAL); LEUKOCYTE ESTERASE ,URINE TRACE (NEGATIVE); NITRITE, URINE NEGATIVE (NEGATIVE); UGLUCOSE NEGATIVE (NEGATIVE)
[2019-06-28] MEDS ORDERED: NITROGLYCERIN 0.4 MG/TAB BOTTLE SL ONE (15:30)
[2019-06-28] MEDS ORDERED: FENTANYL CITRATE 100 MCG/2 ML AMPUL IV ONE (15:30)
--- NOTE | 2019-06-28 15:37 | NUR ---
[facility] TRANSFER CALLED SPOKE WITH NATALIE FOR HIGHER LEVEL OF CARE. FAXED PAPER WORK TO [phone]. WAITING FOR CALL BACK.
[2019-06-28 15:41] LABS: BACTERIA,URINE FEW /HPF (NONE SEEN); RBC,URINE 0-3 /HPF (0-3); SQUAMOUS EPITHELIAL CELL,UR FEW /HPF (NONE SEEN)
--- NOTE | 2019-06-28 16:00 | NUR ---
Patient is resting comfortably in bed with eyes closed.
--- NOTE | 2019-06-28 17:00 | NUR ---
CALLED [facility] SPOKE WITH DR HULL STILL HAS NOT MADE DECISION FOR ADMISSION TRANSFER FOR HIGHER LEVEL OF CARE.
--- NOTE | 2019-06-28 17:38 | NUR ---
[facility] NEED FOR CED[facility] TO DECLINE PATIENT TO START ADMISSION / TRANSFER.
--- NOTE | 2019-06-28 17:38 | NUR ---
Ellis ross in ED - 06/28/19 at 1846 by [id number] CALLED CAROL GUERRERO FROM [facility] WILL NEED FOR CEDARS TO DECLINE PATIENT TO START ADMISSION / TRANSFER.
--- NOTE | 2019-06-28 18:04 | NUR ---
DR MICHAEL WAS CALLED AND SPOKE WITH DR HULL STILL NO DECISION FROM [facility].
--- NOTE | 2019-06-28 18:32 | NUR ---
FREDERIC FROM [facility] CALLED BACK SPOKE WITH DR HULL WILL NOT ACCEPT PATIENT.
--- NOTE | 2019-06-28 18:40 | NUR ---
CALLED [facility] CAROL GUERRERO FROM TRANSFER CENTER. NOT AVAILABLE AT THIS TIME WILL NEED TO CALL BACK.
--- NOTE | 2019-06-28 19:10 | NUR ---
DR QUINONES CALLED SPOKE WITH DR HULL ACCEPTED PATIENT FOR CONSULT.
--- NOTE | 2019-06-28 19:10 | NUR ---
DR MICHAEL CALLED SPOKE WITH DR PARK ACCEPTED PATIENT FOR ADMISSION.
--- NOTE | 2019-06-28 20:51 | NUR ---
SBAR REPORT TO KENNY, BELONGING LIST DONE. PT TO RM [id number]
[2019-06-28 22:42] VITALS: BP 119/64
[2019-06-28] MEDS ORDERED: MORPHINE SULFATE 2 MG/1 ML DISP.SYRIN IM PRN (23:00)
--- NOTE | 2019-06-28 23:02 | NUR ---
ORDERS RECEIVED BY DR. KINNEY. PATIENT TO BE ON MED/SURG. DIAGNOSIS: ABSCESS. CONDITION: GUARDED. DIET RENAL. NPO AFTER MIDNIGHT IV NS 100ML/HR. MORPHINE 2MG IV EVERY 4 HOURS PRN FOR SEVERE PAIN ZOSYN 3.375 IV EVERY 8 HOURS. Addendum: 06/28/19 at 2307 by JAIME GOVEA RN remaining orders and medication reconciliation to be completed by doctor.
[2019-06-28] MEDS ORDERED: PIPERACILLIN SODIUM/TAZOBACTAM 3.375 G in IV DEXTROSE 5% 50 ML IV SCH (23:15)
[2019-06-28] MEDS: IV NS 1000 ML 1,000 ML IV PRN (23:16)
[2019-06-28] MEDS ORDERED: PIPERACILLIN/TAZOBACTAM/D5W 100 ML IV ONE (23:26)
[2019-06-28] MEDS: PIPERACILLIN SODIUM/TAZOBACTAM 3.375 G in IV DEXTROSE 5% 50 ML IV SCH (23:32)
[2019-06-29] MEDS: MORPHINE SULFATE 2 MG/1 ML DISP.SYRIN IV PRN ×2 (00:06→11:56)
[2019-06-29] MEDS ORDERED: TACROLIMUS ANHYDROUS 1 MG CAPSULE PO SCH (01:30)
[2019-06-29] MEDS ORDERED: TACROLIMUS ANHYDROUS 0.5 MG CAPSULE ONE (03:13)
[2019-06-29] MEDS: MYCOPHENOLATE MOFETIL 250 MG CAPSULE PO SCH ×3 (03:22→16:31)
--- NOTE | 2019-06-29 03:35 | NUR ---
PATIENT TAKE HER OWN MEDICATION FOR CELLCEPT. 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 CHARGE AWARE.
--- NOTE | 2019-06-29 05:21 | NUR ---
PATIENT AAOX3. NO S/S OF ACUTE DISTRESS. V/S STABLE. DENIES SOB. SKIN INTACT. BELONGINGS LIST COMPLETED, ID BAND ON. SAFETY PRECAUTIONS IN PLACE. NPO AFTER MIDNIGHT. URINALYSIS COLLECTED. URINE CLEAR AND YELLOW. WILL CONTINUE TO MONITOR.
[2019-06-29] MEDS ORDERED: PIPERACILLIN SODIUM/TAZOBACTAM 3.375 G in IV DEXTROSE 5% 50 ML IV SCH (06:00)
[2019-06-29] MEDS: LEVOTHYROXINE SODIUM 50 MCG TABLET PO SCH (06:07)
[2019-06-29] MEDS: PIPERACILLIN SODIUM/TAZOBACTAM 3.375 G in IV DEXTROSE 5% 50 ML IV SCH (06:08)
[2019-06-29 06:11] LABS: BASOPHILS # (AUTO) 0.1 K/uL (0.0-8.0); BASOPHILS % (AUTO) 1.2 % (0.0-2.0); EOSINOPHILS # (AUTO) 0.5 K/uL (0.0-0.7); EOSINOPHILS % (AUTO) 4.5 % (0.0-7.0); HEMATOCRIT 30.4 % (31.2-41.9); HEMOGLOBIN 9.8 g/dL (10.9-14.3); LYMPHOCYTES # (AUTO) 2.3 K/uL (20.0-40.0); LYMPHOCYTES % (AUTO) 20.2 % (20.5-51.5); MEAN CORPUSCULAR HEMOGLOBIN 25.8 uug (24.7-32.8); MEAN CORPUSCULAR HGB CONC 32 g/dL (32.3-35.6); MEAN CORPUSCULAR VOLUME 79.8 fL (75.5-95.3); MONOCYTES # (AUTO) 1.1 K/uL (2.0-10.0); MONOCYTES % (AUTO) 9.5 % (0.0-11.0); NEUTROPHILS # (AUTO) 7.2 K/uL (1.8-8.9); NEUTROPHILS % (AUTO) 64.6 % (38.5-71.5); PLATELET COUNT (AUTO) 321 K/uL (179-408); RED BLOOD CELL COUNT(AUTO) 3.81 MIL/uL (3.63-4.92); WHITE BLOOD COUNT (AUTO) 11.2 K/uL (3.8-11.8)
[2019-06-29 06:29] LABS: BILIRUBIN,TOTAL 0.6 mg/dL (0.2-1.0); CREATININE 1.5 mg/dL (0.6-1.3); PHOSPHOROUS 3.8 mg/dL (2.5-4.9); POTASSIUM 4.1 mmol/L (3.5-5.1); TOTAL PROTEIN, SERUM 6.7 g/dL (6.4-8.2)
[2019-06-29 06:37] LABS: *BILIRUBIN,URIN NEGATIVE (NEGATIVE); *CLARITY,URINE CLEAR (CLEAR); *COLOR,URINE YELLOW (YELLOW); *KETONES,URINE NEGATIVE (NEGATIVE); *UROBILINOGEN,URINE 0.2 E.U./dl (NORMAL); LEUKOCYTE ESTERASE ,URINE TRACE (NEGATIVE); NITRITE, URINE NEGATIVE (NEGATIVE); PH,URINE 5.5 (5.0-8.0); UGLUCOSE NEGATIVE (NEGATIVE)
[2019-06-29 06:47] LABS: *CREATININE,URINE 25.5 mg/dL (30-125); *URINE TOTAL PROTEIN RANDOM < 6.0 mg/dL (<150/24HR)
[2019-06-29 06:48] LABS: *BLOOD, URINE TRACE (NEGATIVE)
[2019-06-29 06:55] LABS: RBC,URINE 0-3 /HPF (0-3); SQUAMOUS EPITHELIAL CELL,UR FEW /HPF (NONE SEEN)
[2019-06-29 06:56] LABS: BACTERIA,URINE NONE SEEN /HPF (NONE SEEN)
[2019-06-29] MEDS ORDERED: INSULIN REGULAR, HUMAN 300 UNIT/3 ML VIAL SQ PRN (08:15)
[2019-06-29] MEDS ORDERED: DEXTROSE 50% 50 ML DISP.SYRIN IV PRN (08:15)
[2019-06-29 09:00] VITALS: BP 148/79
[2019-06-29] MEDS: TACROLIMUS ANHYDROUS 0.5 MG CAPSULE PO SCH ×2 (09:00→16:31)
[2019-06-29] MEDS: predniSONE 5 MG TABLET PO SCH (09:00)
[2019-06-29 12:00] VITALS: BP 128/65
[2019-06-29] MEDS: IV NS 1000 ML 1,000 ML IV PRN (12:06)
[2019-06-29] MEDS: BLOOD SUGAR DIAGNOSTIC 1 EACH STRIP VI SCH ×2 (12:24→17:38)
[2019-06-29] MEDS: PIPERACILLIN/TAZOBACTAM/D5W 3.375 G in PREMIXED 1 EACH IV SCH ×2 (14:41→21:05)
[2019-06-29 16:00] VITALS: BP 144/77
[2019-06-29] MEDS ORDERED: ZOLPIDEM 5 MG TABLET PO SCH (18:00)
[2019-06-29] MEDS: ZOLPIDEM 5 MG TABLET PO SCH (21:05)
[2019-06-29 21:09] VITALS: BP 150/76
[2019-06-30] MEDS: BLOOD SUGAR DIAGNOSTIC 1 EACH STRIP VI SCH ×4 (00:46→17:22)
[2019-06-30 06:18] LABS: BASOPHILS # (AUTO) 0.1 K/uL (0.0-8.0); BASOPHILS % (AUTO) 1.2 % (0.0-2.0); EOSINOPHILS # (AUTO) 0.6 K/uL (0.0-0.7); EOSINOPHILS % (AUTO) 7.7 % (0.0-7.0); HEMATOCRIT 31.9 % (31.2-41.9); HEMOGLOBIN 10.2 g/dL (10.9-14.3); LYMPHOCYTES # (AUTO) 2.4 K/uL (20.0-40.0); LYMPHOCYTES % (AUTO) 32.6 % (20.5-51.5); MEAN CORPUSCULAR HEMOGLOBIN 25.7 uug (24.7-32.8); MEAN CORPUSCULAR HGB CONC 32 g/dL (32.3-35.6); MEAN CORPUSCULAR VOLUME 80.8 fL (75.5-95.3); MONOCYTES # (AUTO) 0.8 K/uL (2.0-10.0); MONOCYTES % (AUTO) 11.2 % (0.0-11.0); NEUTROPHILS # (AUTO) 3.5 K/uL (1.8-8.9); NEUTROPHILS % (AUTO) 47.3 % (38.5-71.5); PLATELET COUNT (AUTO) 365 K/uL (179-408); RED BLOOD CELL COUNT(AUTO) 3.94 MIL/uL (3.63-4.92); WHITE BLOOD COUNT (AUTO) 7.3 K/uL (3.8-11.8)
[2019-06-30 06:23] VITALS: BP 152/84
[2019-06-30] MEDS: LEVOTHYROXINE SODIUM 50 MCG TABLET PO SCH (06:39)
[2019-06-30] MEDS: PIPERACILLIN/TAZOBACTAM/D5W 3.375 G in PREMIXED 1 EACH IV SCH ×3 (06:40→21:20)
[2019-06-30] MEDS: IV NS 1000 ML 1,000 ML IV PRN (06:43)
[2019-06-30 06:48] LABS: BILIRUBIN,TOTAL 0.5 mg/dL (0.2-1.0); CREATININE 1.3 mg/dL (0.6-1.3); MAGNESIUM 1.8 mg/dL (1.8-2.4); PHOSPHOROUS 3.6 mg/dL (2.5-4.9); POTASSIUM 4.3 mmol/L (3.5-5.1); TOTAL PROTEIN, SERUM 6.8 g/dL (6.4-8.2)
[2019-06-30 08:00] VITALS: BP 152/84
--- NOTE | 2019-06-30 08:00 | NUR ---
VSS 98.4-67-18 BP 152/84. SATS 97% ON ROOM AIR. COLOR GOOD. PATIENT IS A&O X 3 AND CHINESE SPEAKING. PLEASANT AND COOPERATIVE. SKIN WARM, DRY, AND INTACT THROUGHOUT WITH IV VIA LEFT WRIST #20. AM ACCUCHECK WAS 110 MG/DL - NO INSULIN DUE. NO SIGNS OF ACUTE HYPO-HYPERGLYCEMIAS. LUNGS CTA TO BUL. ABDOMEN SOFTLY DISTENDED WITH HYPOACTIVE BOWEL SOUNDS. NO NAUSEA OR EMESIS. NO RECTAL/VAGINAL BLEEDING. ASSESSMENT IS ONGOING. JOYNER WELL WITH SELF TURNING AND REPOSITIONING. STABLE.
[2019-06-30] MEDS: predniSONE 5 MG TABLET PO SCH (08:45)
[2019-06-30] MEDS: MYCOPHENOLATE MOFETIL 250 MG CAPSULE PO SCH ×2 (08:45→17:27)
[2019-06-30] MEDS: TACROLIMUS ANHYDROUS 0.5 MG CAPSULE PO SCH ×2 (08:46→17:27)
[2019-06-30 12:00] VITALS: BP_SYST 167; BP_SYST 170; BP_DIAS 88; BP_DIAS 90
--- NOTE | 2019-06-30 12:00 | NUR ---
VSS 98.1-70-20 BP 167/90. SATS 100% ON ROOM AIR. PATIENT RESTS QUIETLY. NO REAL C/O PAINS. A NEW ORDER EXISTS FOR IR TO DRAIN THE ABCESS OF THE DESCENDING COLON. COAGS WERE JUST ORDERED AND ARE PENDING. NURSE PLACES CALL OUT DR. DR. YAHAIRA CHAPIN TO PERFORM THE PROCEDURE. SIMON IN IR ALSO STANDING BY. NO SIGNS OF DISTRESS. ACCUCHECK=92 MG/DL--NO INSULIN ORDERED.
--- NOTE | 2019-06-30 14:00 | NUR ---
NURSE SPOKE WITH DR CHAPIN AND GAVE HIM A REPORT ON THE PATIENT. SO FAR, NO CALL TO SEND PATIENT TO IR. PATIENT HAS BEEN NPO AND IS READY FOR PROCEDURE. SIMON FROM IR STATED THAT DR. CHAPIN TOLD HIM THAT THIS PROCEDURE MAY NOT BE NECESSARY AT THIS TIME. NURSE PLACES CALL OUT TO DR. MICHAEL TO ASSURE THAT HE AND DR. CHAPIN HAVE MADE A DECISION AND TO ALSO ASK DR. MICHAEL TO CALL THE SON, CHRISTIN, TO ANSWER SOME QUESTIONS.
[2019-06-30 16:00] VITALS: BP 166/80
--- NOTE | 2019-06-30 16:00 | NUR ---
VSS 98.0-63-19 BP 166/80. SATS 94% ON ROOM AIR. NURSE AFFIRMED THAT CONSTANTINE AMADOR SPOKE DIRECTLY WITH AND THEY AGREED THAT PATIENT IS TO HAVE AN MRI OF THE ABDOMEN TOMORROW TO FURTHER ADDRESS THE PRESENCE OF THE MASS OF THE DESCENDING COLON. CONSTANTINE AMADOR ALSO TO SPEAK TO SON, CHRISTIN, FOR FURTHER UPDATES ON PATIENT'S CONDITION. PATIENTN CONTINUES TO BE NPO WITH IV FLLUIDS. NO NAUSEA OR EMESIS.
--- NOTE | 2019-06-30 18:00 | NUR ---
ACCUCHECK=95 MG/DL-NO INSULIN GIVEN. NO SIGNS OF ACUTE HYPOGLYCEMIA. NO C/O PAINS. STABLE.
--- NOTE | 2019-06-30 19:30 | NUR ---
RECEIVED PT AWAKE, ALERT AND ORIENTEDX4. PT IN NO ACUTE DISTRESS. IV INTACT . SAFETY AND COMFORT PROVIDED. WILL CONTINUE TO MONITOR.
[2019-06-30 20:06] VITALS: BP 158/74
[2019-06-30] MEDS: ZOLPIDEM 5 MG TABLET PO SCH (20:47)
[2019-06-30] MEDS: MORPHINE SULFATE 2 MG/1 ML DISP.SYRIN IV PRN (20:48)
[2019-06-30 21:00] VITALS: BP 149/68
--- NOTE | 2019-06-30 21:48 | NUR ---
MORPHINE GIVEN FOR ABDOMINAL PAIN AT 2047H. PT TOLERATED IT WELL. IT HELPS HER A BIT PER PATIENT. PT IN NO ACUTE RESPIRATORY DISTRESS.
[2019-07-01] VITALS (8 sets, daily range): BP systolic 132–177; BP diastolic 67–93
[2019-07-01] MEDS: BLOOD SUGAR DIAGNOSTIC 1 EACH STRIP VI SCH ×4 (00:52→17:10)
--- NOTE | 2019-07-01 03:31 | NUR ---
MRI QUESTIONARE WAS ANSWERED BY THE PT. REGARDING HISTORY OF PT. IT SHOWS PT HAS RIGHT MASTECTOMY BUT WHEN I ASSESSED THE PT HAS STILL HER RIGHT BREAST. PT DENIES SHE HAS CANCER. CHARGE NURSE AWARE.
[2019-07-01] MEDS: PIPERACILLIN/TAZOBACTAM/D5W 3.375 G in PREMIXED 1 EACH IV SCH ×4 (05:00→22:17)
[2019-07-01] MEDS: IV NS 1000 ML 1,000 ML IV PRN (05:43)
--- NOTE | 2019-07-01 06:02 | NUR ---
PT SLEPT INTERMITTENTLY. PT IN NO ACUTE RESPIRATORY DISTRESS. IV INTACT. PRESCRIBED MEDICATION GIVEN AND PT TOLERATED IT WELL. SAFETY AND COMFORT PROVIDED. WILL ENDORSE TO INCOMING NURSE FOR CONTINUITY OF CARE.
[2019-07-01] MEDS: LEVOTHYROXINE SODIUM 50 MCG TABLET PO SCH (06:05)
[2019-07-01 06:36] LABS: CREATININE 1.2 mg/dL (0.6-1.3); MAGNESIUM 1.6 mg/dL (1.8-2.4); PHOSPHOROUS 3.7 mg/dL (2.5-4.9); POTASSIUM 4.1 mmol/L (3.5-5.1)
[2019-07-01 06:42] LABS: BASOPHILS # (AUTO) 0.1 K/uL (0.0-8.0); EOSINOPHILS # (AUTO) 0.3 K/uL (0.0-0.7); EOSINOPHILS % (AUTO) 3.8 % (0.0-7.0); MONOCYTES # (AUTO) 0.8 K/uL (2.0-10.0)
[2019-07-01 06:54] LABS: BASOPHILS % (AUTO) 0.7 % (0.0-2.0); HEMATOCRIT 33.9 % (31.2-41.9); HEMOGLOBIN 10.8 g/dL (10.9-14.3); LYMPHOCYTES % (AUTO) 36.5 % (20.5-51.5); MEAN CORPUSCULAR HEMOGLOBIN 25.5 uug (24.7-32.8); MEAN CORPUSCULAR HGB CONC 32 g/dL (32.3-35.6); MEAN CORPUSCULAR VOLUME 80.2 fL (75.5-95.3); MONOCYTES % (AUTO) 9.6 % (0.0-11.0); NEUTROPHILS % (AUTO) 49.4 % (38.5-71.5); PLATELET COUNT (AUTO) 400 K/uL (179-408); RED BLOOD CELL COUNT(AUTO) 4.23 MIL/uL (3.63-4.92); WHITE BLOOD COUNT (AUTO) 8.1 K/uL (3.8-11.8)
--- NOTE | 2019-07-01 09:15 | NUR ---
PT WHEELED OUT VIA [facility] BY [facility] UNIT # [id number]. GAVE REPORT AND PAPERWORKS TO MICHELL GOODWIN.PT STABLE.
--- NOTE | 2019-07-01 10:35 | NUR ---
PT ARRIVED VIA GURNEY FROM MRI IN [place]. [facility] UNIT #[id number] BROUGHT THE PT . PT STABLE AND IN NO ACUTE DISTRESS. WILL CONTINUE TO MONITOR.
[2019-07-01] MEDS: MYCOPHENOLATE MOFETIL 250 MG CAPSULE PO SCH ×2 (10:54→17:05)
[2019-07-01] MEDS: predniSONE 5 MG TABLET PO SCH (10:54)
[2019-07-01] MEDS: TACROLIMUS ANHYDROUS 0.5 MG CAPSULE PO SCH ×2 (10:54→17:05)
[2019-07-01] MEDS ORDERED: MAGNESIUM SULFATE/D5W 100 ML IV SCH (11:00)
[2019-07-01] MEDS: MORPHINE SULFATE 2 MG/1 ML DISP.SYRIN IV PRN ×2 (11:16→17:12)
--- NOTE | 2019-07-01 11:46 | NUR ---
MORPHINE GIVEN AT 116H FOR LOWER ABDOMEN PAIN. PT TOLERATED IT WELL. SAFETY AND COMFORT PROVIDED. WILL CONTINUE TO MONITOR.
--- NOTE | 2019-07-01 11:47 | NUR ---
HANDS OFF REPORT TO ZELALEM PALACIOS. PT STABLE.
--- NOTE | 2019-07-01 12:20 | NUR ---
received awake alert and oriented, resting in bed, states pain almost gone, no nausea, still npo except for meds, needs attended and safety measures maintained, call light within reach
--- NOTE | 2019-07-01 13:00 | NUR ---
endorsed care to [place] RN
--- NOTE | 2019-07-01 16:00 | NUR ---
[facility] higher care secondary to IR drainage of abscess.
[2019-07-01] MEDS ORDERED: hydrALAZINE HCL 20 MG/1 ML VIAL IV PRN (16:45)
--- NOTE | 2019-07-01 17:00 | NUR ---
Dr Bassett notified of elevated b/p. New orders received and carried out. Pt complain of abd pain morphine given for pain level of 7/10. Will monitor pt.
[2019-07-01] MEDS: BENAZEPRIL HCL 20 MG TABLET PO SCH ×2 (17:58→20:42)
--- NOTE | 2019-07-01 18:10 | NUR ---
sbp still@70's gave benazepril as ordered. PT states her pain on abd is better "kenton mancera" Will recheck b/p.
--- NOTE | 2019-07-01 21:35 | NUR ---
REPORT GIVEN TO SUZANNE WATSON AT [facility]; PT GOING TO 1989 UNDER THE SERVICE OF DR DE; PT'S HEAD START DIRECTOR AROUND 2200H
--- NOTE | 2019-07-01 22:45 | NUR ---
PT PICKED UP BY AMBULANCE AND TRANSFERRED TO [facility] FOR HIGHER LEVEL OF CARE; FAMILY AWARE; GOING TO ROOM 7732
[2019-07-01] MEDS: ZOLPIDEM 5 MG TABLET PO SCH (22:50)
[2019-07-02 13:07] LABS: A/G RATIO 0.7 (0.7-1.7); ALBUMIN 2.6 g/dL (2.9-4.4); ALPHA-1-GLOBULIN 0.4 g/dL (0.0-0.4); ALPHA-2-GLOBULIN 0.9 g/dL (0.4-1.0); BETA GLOBULIN 1.3 g/dL (0.7-1.3); GAMMA GLOBULIN 1.2 g/dL (0.4-1.8); GLOBULIN, TOTAL 3.7 g/dL (2.2-3.9); M-SPIKE Not Observed g/dL (Not Observed)
== END 2019-07-01 22:45 | disposition short-term general hospital (02) | DRG 391 ==
LOC: ER 12:15 → TELE3 20:48 → MEDSURG3 23:30
PROVIDERS: ADMIT Internal Medicine; ATTEND Internal Medicine
DX: K57.20 Diverticulitis of large intestine with perforation and abscess without bleeding (principal); N15.1 Renal and perinephric abscess; T86.19 Other complication of kidney transplant; N17.9 Acute kidney failure, unspecified; Z79.899 Other long term (current) drug therapy; E86.0 Dehydration; E11.22 Type 2 diabetes mellitus with diabetic chronic kidney disease; E03.9 Hypothyroidism, unspecified; D72.829 Elevated white blood cell count, unspecified; E78.5 Hyperlipidemia, unspecified; Z87.891 Personal history of nicotine dependence; Z85.3 Personal history of malignant neoplasm of breast; Z87.440 Personal history of urinary (tract) infections; Z90.11 Acquired absence of right breast and nipple; K76.0 Fatty (change of) liver, not elsewhere classified; I50.9 Heart failure, unspecified; R59.0 Localized enlarged lymph nodes; Y83.0 Surgical operation with transplant of whole organ as the cause of abnormal reaction of the patient, or of later complication, without mention of misadventure at the time of the procedure; Y82.8 Other medical devices associated with adverse incidents; Y92.009 Unspecified place in unspecified non-institutional (private) residence as the place of occurrence of the external cause; K37 Unspecified appendicitis
CPT/HCPCS: 36415; 74181; 83690; 83735; 83970; 84100; 84155; 84156; 84165; 84300; 85025; 85610; 85730; 93005; 93307; A4663; G0378; J0360; J1815; J2270; J2543; J3475; J7030; J7060; J7507; J7512; J7517

== ENCOUNTER 2019-07-27 18:49 | Inpatient (IN) | payer MEDICARE, OTHER ==
[~2019-07-27] VITALS: Ht 157.5 cm; Wt 82.1 kg
[~2019-07-27 18:49] MED LIST changes: +BENA20TA9 PO; -CEPH-570 PO; +NITR50CA PO; -OMEP40CA13 PO; +PRED-170 PO; -PRED2.5T PO
--- NOTE | 2019-07-27 19:20 | NUR ---
Assumed care for pt at this time. Received full report from AM nurse. Pt is in bed, semi wilson's position. Bed locked in position, side rails up x 2.
--- NOTE | 2019-07-27 19:25 | NUR ---
Dr Frias at bedside for MSE, accompanied by Hussain PALACIOS for translation.
[2019-07-27] MEDS ORDERED: IV NORMAL SALINE 500 ML IV ONE (19:34)
[2019-07-27] MEDS ORDERED: MORPHINE SULFATE 2 MG/1 ML DISP.SYRIN ONE (19:43)
[2019-07-27] MEDS ORDERED: ONDANSETRON 4 MG/2 ML VIAL ONE (19:43)
[2019-07-27] MEDS ORDERED: ONDANSETRON 4 MG/2 ML VIAL IV ONE (19:45)
[2019-07-27] MEDS ORDERED: MORPHINE SULFATE 2 MG/1 ML DISP.SYRIN IV ONE (19:45)
[2019-07-27 20:37] LABS: *BLOOD, URINE 1+ (NEGATIVE); *CLARITY,URINE SLIGHTLY CLOUDY (CLEAR); *COLOR,URINE Orange (YELLOW); *KETONES,URINE NEGATIVE (NEGATIVE); *UROBILINOGEN,URINE 0.2 E.U./dl (NORMAL); BASOPHILS # (AUTO) 0.1 K/uL (0.0-8.0); BASOPHILS % (AUTO) 0.5 % (0.0-2.0); EOSINOPHILS # (AUTO) 0.1 K/uL (0.0-0.7); EOSINOPHILS % (AUTO) 0.7 % (0.0-7.0); HEMATOCRIT 32.5 % (31.2-41.9); HEMOGLOBIN 10.4 g/dL (10.9-14.3); LEUKOCYTE ESTERASE ,URINE 1+ (NEGATIVE); LYMPHOCYTES # (AUTO) 2.8 K/uL (20.0-40.0); LYMPHOCYTES % (AUTO) 16.8 % (20.5-51.5); MEAN CORPUSCULAR HEMOGLOBIN 25.9 uug (24.7-32.8); MEAN CORPUSCULAR HGB CONC 32 g/dL (32.3-35.6); MEAN CORPUSCULAR VOLUME 80.8 fL (75.5-95.3); MONOCYTES % (AUTO) 12.2 % (0.0-11.0); NEUTROPHILS # (AUTO) 11.5 K/uL (1.8-8.9); NEUTROPHILS % (AUTO) 69.8 % (38.5-71.5); NITRITE, URINE NEGATIVE (NEGATIVE); PLATELET COUNT (AUTO) 288 K/uL (179-408); RED BLOOD CELL COUNT(AUTO) 4.02 MIL/uL (3.63-4.92); UGLUCOSE NEGATIVE (NEGATIVE); WHITE BLOOD COUNT (AUTO) 16.4 K/uL (3.8-11.8)
[2019-07-27 20:39] LABS: *BILIRUBIN,URIN 1+ (NEGATIVE)
[2019-07-27 20:44] LABS: BACTERIA,URINE MANY /HPF (NONE SEEN); SQUAMOUS EPITHELIAL CELL,UR MODERATE /HPF (NONE SEEN); WBC,URINE 50-80 /HPF (0-3)
[2019-07-27 20:45] LABS: CREATININE 1.8 mg/dL (0.6-1.3); POTASSIUM 4.2 mmol/L (3.5-5.1)
--- NOTE | 2019-07-27 20:50 | NUR ---
Pt down to CT via wheelchair, assisted by Tech.
[2019-07-27 21:03] LABS: LYMPHOCYTES % (MANUAL) 11 % (20-40); MONOCYTES % (MANUAL) 12 % (2-10); MYELOCYTES % 1 % (0-0); NEUTROPHILS % (MANUAL) 76 % (42-75)
[2019-07-27 21:04] LABS: BILIRUBIN,TOTAL 0.6 mg/dL (0.2-1.0); TOTAL PROTEIN, SERUM 7.5 g/dL (6.4-8.2)
--- NOTE | 2019-07-27 21:05 | NUR ---
Pt back from CT.
[2019-07-27] MEDS ORDERED: levoFLOXacin 500 MG/D5W 100ML PIGGYBACK IV ONE (21:45)
[2019-07-27] MEDS ORDERED: PIPERACILLIN SODIUM/TAZOBACTAM 3.375 G in IV DEXTROSE 5% 50 ML IV ONE (21:45)
--- NOTE | 2019-07-27 21:45 | NUR ---
Dr. Frias on panel call with Dr. Baker for admission.
--- NOTE | 2019-07-27 21:50 | NUR ---
RN received telephone orders for admission, read back orders and verified. Admit patient to Medsurg/ Dx: Abd Pain/Possible Abscess. Home meds reconciled with patient and MD. All written orders will send up with patient. Belongings list completed and accounted for. Will finish ATB IV ordered in ER before sending up to floor.
[2019-07-27] MEDS ORDERED: PIPERACILLIN/TAZOBACTAM/D5W 50 ML IV ONE (22:12)
[2019-07-27] MEDS ORDERED: levoFLOXacin 500 MG/D5W 100 ML ONE (22:12)
[2019-07-27] MEDS ORDERED: ONDANSETRON 4 MG/2 ML VIAL IV PRN (23:00)
[2019-07-27] MEDS ORDERED: MAGNESIUM HYDROXIDE 30 ML LIQUID UDC PO PRN (23:00)
[2019-07-27] MEDS ORDERED: Z GUARD REMEDY PASTE 57 GM TUBE TOP PRN (23:00)
--- NOTE | 2019-07-27 23:08 | NUR ---
Report given to Marla PALACIOS.
[2019-07-27] MEDS ORDERED: DEXTROSE 50% 50 ML DISP.SYRIN IV PRN (23:15)
--- NOTE | 2019-07-27 23:30 | NUR ---
Transported patient to Room 304 via wheelchair. All belongings sent to room. Warm handoff to Marla PALACIOS.
[2019-07-27] MEDS: IV NS 1000 ML 1,000 ML IV PRN (23:57)
[2019-07-28] MEDS ORDERED: MORPHINE SULFATE 2 MG/1 ML DISP.SYRIN IV PRN
[2019-07-28] MEDS ORDERED: levoFLOXacin 500 MG/D5W 500 MG in PREMIXED 1 EACH IV SCH ×2
--- NOTE | 2019-07-28 00:22 | NUR ---
Received patient from ER. Dx: Abdominal pain/Possible abscess. Patient is Med/surg under Dr. Baker. Spoke to Arti Haines NP, as she entered admission orders and antibiotics. Explained that Dr. Baker ordered to continue the zosyn and levaquin and she said "that's fine, keep what he wants". Patient is A/Ox4, Ukrainian speaking. IVF started on the right AC. Complains of abdominal pain. Noted patient had recent drainage from [facility], patient stated she thinks it was on July 05. 3 incision sites on the abdomen is healed. Dressing still intact. Patient ambulates with a steady gait. Vitals WNL. Patient oriented to unit and room, safety measures initiated. Bed is low and locked, call light within reach. Will continue to monitor.
[2019-07-28 00:59] VITALS: BP 102/54
[2019-07-28] MEDS ORDERED: PIPERACILLIN/TAZOBACTAM/D5W 50 ML IV ONE (01:44)
[2019-07-28 04:00] VITALS: BP 115/70
[2019-07-28] MEDS ORDERED: PIPERACILLIN/TAZO 2.25 G in IV DEXTROSE 5% 50 ML IV ONE (04:00)
--- NOTE | 2019-07-28 05:53 | NUR ---
patient slept well throughout shift. PRN morphine given x1 for abdominal pain and was effective. Vitals WNL. IVF running on right AC, no s/s of infection or infiltration noted. Patient brought medication, will send to pharmacy. Also patient had $103 in [place], explained it was patient choice to leave at bedside or can leave in the safe, patient stated she wanted to leave in safe. Receipt is attached to belongings list. Safety measures maintained. Will endorse to next shift.
[2019-07-28] MEDS ORDERED: MEROPENEM 0.5 G in IV NORMAL SALINE 50 ML IV SCH (06:00)
[2019-07-28] MEDS ORDERED: MEROPENEM 1 G in IV NORMAL SALINE 100 ML IV ONE (06:00)
[2019-07-28] MEDS: BLOOD SUGAR DIAGNOSTIC 1 EACH STRIP VI SCH ×4 (06:33→20:37)
[2019-07-28] MEDS: LEVOTHYROXINE SODIUM 50 MCG TABLET PO SCH (06:35)
[2019-07-28 07:27] LABS: BASOPHILS % (AUTO) 0.2 % (0.0-2.0); EOSINOPHILS # (AUTO) 0.1 K/uL (0.0-0.7); EOSINOPHILS % (AUTO) 0.6 % (0.0-7.0); HEMATOCRIT 30.9 % (31.2-41.9); HEMOGLOBIN 9.8 g/dL (10.9-14.3); LYMPHOCYTES # (AUTO) 2.2 K/uL (20.0-40.0); LYMPHOCYTES % (AUTO) 16.6 % (20.5-51.5); MEAN CORPUSCULAR HGB CONC 32 g/dL (32.3-35.6); MONOCYTES # (AUTO) 1.8 K/uL (2.0-10.0); MONOCYTES % (AUTO) 13.8 % (0.0-11.0); NEUTROPHILS # (AUTO) 8.9 K/uL (1.8-8.9); NEUTROPHILS % (AUTO) 68.8 % (38.5-71.5); PLATELET COUNT (AUTO) 254 K/uL (179-408); RED BLOOD CELL COUNT(AUTO) 3.77 MIL/uL (3.63-4.92)
[2019-07-28 07:37] LABS: CREATININE 1.4 mg/dL (0.6-1.3); MAGNESIUM 1.9 mg/dL (1.8-2.4); PHOSPHOROUS 2.9 mg/dL (2.5-4.9); POTASSIUM 4.3 mmol/L (3.5-5.1)
[2019-07-28] MEDS: TACROLIMUS ANHYDROUS 0.5 MG CAPSULE PO SCH ×2 (08:26→16:58)
[2019-07-28] MEDS: predniSONE 5 MG TABLET PO SCH (08:26)
[2019-07-28] MEDS: FAMOTIDINE 20 MG TABLET PO SCH (08:26)
[2019-07-28] MEDS: MYCOPHENOLATE MOFETIL 250 MG CAPSULE PO SCH ×2 (08:27→20:37)
[2019-07-28] MEDS ORDERED: predniSONE 5 MG TABLET PO SCH (09:00)
[2019-07-28] MEDS ORDERED: LEVOTHYROXINE SODIUM 50 MCG TABLET PO SCH (09:00)
[2019-07-28] MEDS ORDERED: TACROLIMUS ANHYDROUS 1 MG CAPSULE PO SCH ×2 (09:00)
[2019-07-28] MEDS ORDERED: TACROLIMUS ANHYDROUS 0.5 MG CAPSULE PO SCH (09:00)
[2019-07-28] MEDS ORDERED: MYCOPHENOLATE MOFETIL 250 MG CAPSULE PO SCH (09:00)
[2019-07-28] MEDS ORDERED: CEFTRIAXONE 1 G in IV DEXTROSE 5% 50 ML IV ONE (09:00)
[2019-07-28 11:39] VITALS: BP 112/66
[2019-07-28] MEDS: INSULIN REGULAR, HUMAN 300 UNIT/3 ML VIAL SQ PRN ×2 (11:59→17:01)
[2019-07-28] MEDS: PIPERACILLIN SODIUM/TAZOBACTAM 3.375 G in IV DEXTROSE 5% 50 ML IV SCH ×2 (12:00→19:02)
[2019-07-28 15:30] VITALS: BP 103/58
--- NOTE | 2019-07-28 18:46 | NUR ---
PATIENT CALM AND COMFORTABLE THROUGH OUT SHIFT WITH NO SIGNS OF DISTRESS ; PATIENT WITH NO SIGNS OF DISTRESS; PATIENT WILL CONTINUE TO MONITORED.
[2019-07-28] MEDS: IV NS 1000 ML 1,000 ML IV PRN (19:03)
--- NOTE | 2019-07-28 19:30 | NUR ---
RECEIVED PT AWAKE, ALERT AND ORIENTEDX4. PT COMPLAINING OF ABDOMINAL PAIN.IV INTACT. SAFETY AND COMFORT PROVIDED. WILL CONTINUE TO MONITOR.
--- NOTE | 2019-07-28 20:00 | NUR ---
awake,alert x3 speaks arabic. abdomiinal dressings x4 intact
[2019-07-28 20:10] VITALS: BP 116/65
[2019-07-28] MEDS: SIMVASTATIN 40 MG TABLET PO SCH (20:32)
[2019-07-28] MEDS: ACETAMINOPHEN 325 MG TABLET PO PRN (20:41)
[2019-07-28] MEDS: HYDROCODONE/APAP 5-325MG TABLET PO PRN (21:14)
--- NOTE | 2019-07-28 21:33 | NUR ---
PT GIVEN TYLENOL FOR 100 TEMPERATURE AND COOLING MEASURES DONE.PT AFEBRILE UPON RECHECKING. PT GIVEN NORCO FOR 6/10 PAIN SCALE FOR ABDOMINAL PAIN. SAFETY AND COMFORT PROVIDED. WILL CONTINUE TO MONITOR.
[2019-07-29 02:18] LABS: *BILIRUBIN,URIN NEGATIVE (NEGATIVE); *CLARITY,URINE CLEAR (CLEAR); *COLOR,URINE YELLOW (YELLOW); *KETONES,URINE NEGATIVE (NEGATIVE); *UROBILINOGEN,URINE 0.2 E.U./dl (NORMAL); LEUKOCYTE ESTERASE ,URINE TRACE (NEGATIVE); NITRITE, URINE NEGATIVE (NEGATIVE); PH,URINE 5.5 (5.0-8.0); UGLUCOSE NEGATIVE (NEGATIVE)
[2019-07-29 02:19] LABS: *BLOOD, URINE TRACE (NEGATIVE)
[2019-07-29 02:29] LABS: BACTERIA,URINE FEW /HPF (NONE SEEN); RBC,URINE 0-3 /HPF (0-3); SQUAMOUS EPITHELIAL CELL,UR FEW /HPF (NONE SEEN); WBC,URINE 20-50 /HPF (0-3)
[2019-07-29 02:53] LABS: *URINE TOTAL PROTEIN RANDOM 18.9 mg/dL (<150/24HR)
[2019-07-29] MEDS: PIPERACILLIN SODIUM/TAZOBACTAM 3.375 G in IV DEXTROSE 5% 50 ML IV SCH ×3 (03:10→20:11)
[2019-07-29] MEDS: ACETAMINOPHEN 325 MG TABLET PO PRN (05:39)
[2019-07-29] MEDS: LEVOTHYROXINE SODIUM 50 MCG TABLET PO SCH (06:08)
[2019-07-29 06:10] VITALS: BP 104/54
[2019-07-29] MEDS: HYDROCODONE/APAP 5-325MG TABLET PO PRN (06:22)
--- NOTE | 2019-07-29 06:22 | NUR ---
PT SLEPT INTERMITTENTLY. PRESCRIBED MEDICATION GIVEN AND PT TOLERATED IT WELL. NORCO GIVEN AT 0622H FOR 7/10 ABDOMINAL PAIN. PT TOLERATED IT WELL. PT COMPLIANT WITH CARE. SAFETY AND COMFORT PROVIDED. ALL NEEDS ARE MET. WILL ENDORSE TO INCOMING NURSE FOR CONTINUITY OF CARE.
[2019-07-29 06:40] LABS: BASOPHILS # (AUTO) 0.1 K/uL (0.0-8.0); BASOPHILS % (AUTO) 0.5 % (0.0-2.0); EOSINOPHILS # (AUTO) 0.4 K/uL (0.0-0.7); EOSINOPHILS % (AUTO) 3.4 % (0.0-7.0); HEMATOCRIT 31.3 % (31.2-41.9); HEMOGLOBIN 9.9 g/dL (10.9-14.3); LYMPHOCYTES # (AUTO) 2.4 K/uL (20.0-40.0); LYMPHOCYTES % (AUTO) 22.2 % (20.5-51.5); MEAN CORPUSCULAR HEMOGLOBIN 25.8 uug (24.7-32.8); MEAN CORPUSCULAR HGB CONC 32 g/dL (32.3-35.6); MONOCYTES # (AUTO) 1.8 K/uL (2.0-10.0); MONOCYTES % (AUTO) 16.7 % (0.0-11.0); NEUTROPHILS # (AUTO) 6.2 K/uL (1.8-8.9); NEUTROPHILS % (AUTO) 57.2 % (38.5-71.5); PLATELET COUNT (AUTO) 286 K/uL (179-408); RED BLOOD CELL COUNT(AUTO) 3.82 MIL/uL (3.63-4.92); WHITE BLOOD COUNT (AUTO) 10.7 K/uL (3.8-11.8)
[2019-07-29] MEDS: BLOOD SUGAR DIAGNOSTIC 1 EACH STRIP VI SCH ×4 (06:41→21:39)
[2019-07-29 06:42] LABS: BILIRUBIN,TOTAL 0.4 mg/dL (0.2-1.0); CREATININE 1.3 mg/dL (0.6-1.3); MAGNESIUM 2.1 mg/dL (1.8-2.4); PHOSPHOROUS 3.2 mg/dL (2.5-4.9); POTASSIUM 4.3 mmol/L (3.5-5.1)
[2019-07-29 08:09] LABS: EOSINOPHILS % (MANUAL) 3 % (0-8); LYMPHOCYTES % (MANUAL) 22 % (20-40); MONOCYTES % (MANUAL) 14 % (2-10); NEUTROPHILS % (MANUAL) 61 % (42-75)
[2019-07-29] MEDS: FAMOTIDINE 20 MG TABLET PO SCH (08:18)
[2019-07-29] MEDS: MYCOPHENOLATE MOFETIL 250 MG CAPSULE PO SCH ×2 (08:18→20:12)
[2019-07-29] MEDS: predniSONE 5 MG TABLET PO SCH (08:18)
[2019-07-29] MEDS: TACROLIMUS ANHYDROUS 0.5 MG CAPSULE PO SCH ×2 (08:18→17:13)
[2019-07-29 11:30] VITALS: BP 113/65
[2019-07-29 16:00] VITALS: BP 146/80
[2019-07-29] MEDS: INSULIN REGULAR, HUMAN 300 UNIT/3 ML VIAL SQ PRN ×2 (17:16→21:41)
[2019-07-29 20:00] VITALS: BP 135/66
[2019-07-29] MEDS: SIMVASTATIN 40 MG TABLET PO SCH (20:12)
[2019-07-30] MEDS: IV NS 1000 ML 1,000 ML IV PRN (00:33)
[2019-07-30] MEDS: PIPERACILLIN SODIUM/TAZOBACTAM 3.375 G in IV DEXTROSE 5% 50 ML IV SCH ×2 (03:13→12:01)
[2019-07-30 05:32] VITALS: BP 145/81
--- NOTE | 2019-07-30 05:43 | NUR ---
slept at shrt intervals.
[2019-07-30] MEDS: LEVOTHYROXINE SODIUM 50 MCG TABLET PO SCH (06:05)
[2019-07-30] MEDS: BLOOD SUGAR DIAGNOSTIC 1 EACH STRIP VI SCH ×2 (06:26→11:48)
--- NOTE | 2019-07-30 08:00 | NUR ---
received pt. resting in bed alert oriented x4 german speaking. pt. has pain on right side of abdomen will give PRN pain medication. IV intact running prescribed fluid. pt. on room air saturating well. safety measures in place. call light within reach. will continue to monitor pt.
[2019-07-30] MEDS: predniSONE 5 MG TABLET PO SCH (08:41)
[2019-07-30] MEDS: FAMOTIDINE 20 MG TABLET PO SCH (08:41)
[2019-07-30] MEDS: TACROLIMUS ANHYDROUS 0.5 MG CAPSULE PO SCH (08:41)
[2019-07-30] MEDS: MYCOPHENOLATE MOFETIL 250 MG CAPSULE PO SCH (08:42)
[2019-07-30] MEDS: INSULIN REGULAR, HUMAN 300 UNIT/3 ML VIAL SQ PRN ×2 (08:44→12:03)
[2019-07-30] MEDS: HYDROCODONE/APAP 5-325MG TABLET PO PRN (08:56)
[2019-07-30] MEDS ORDERED: CEPH-569 PO (11:11)
[2019-07-30 11:18] VITALS: BP 115/62
== END 2019-07-30 17:00 | disposition home or self-care (01) | DRG 698 ==
LOC: ER 18:51 → MEDSURG3 23:07
PROVIDERS: ADMIT Internal Medicine; ATTEND Internal Medicine
DX: T86.19 Other complication of kidney transplant (principal); A41.9 Sepsis, unspecified organism; N17.0 Acute kidney failure with tubular necrosis; N15.1 Renal and perinephric abscess; N12 Tubulo-interstitial nephritis, not specified as acute or chronic; T86.12 Kidney transplant failure; E03.9 Hypothyroidism, unspecified; I50.9 Heart failure, unspecified; Y83.0 Surgical operation with transplant of whole organ as the cause of abnormal reaction of the patient, or of later complication, without mention of misadventure at the time of the procedure; Z85.3 Personal history of malignant neoplasm of breast; Z86.19 Personal history of other infectious and parasitic diseases; Z87.440 Personal history of urinary (tract) infections; Z90.11 Acquired absence of right breast and nipple; Z79.899 Other long term (current) drug therapy; E78.5 Hyperlipidemia, unspecified; Y92.009 Unspecified place in unspecified non-institutional (private) residence as the place of occurrence of the external cause; B96.20 Unspecified Escherichia coli [E. coli] as the cause of diseases classified elsewhere; I11.0 Hypertensive heart disease with heart failure; R59.0 Localized enlarged lymph nodes; Y83.8 Other surgical procedures as the cause of abnormal reaction of the patient, or of later complication, without mention of misadventure at the time of the procedure; T86.13 Kidney transplant infection
CPT/HCPCS: 36415; 70030-TC; 71045; 83605; 83615; 83735; 83970; 84100; 84156; 84300; 85025; 87040; 87077; 87086; 93005; A4663; G0378; J0696; J1815; J1956; J2185; J2270; J2405; J2543; J3490; J7030; J7060; J7507; J7512; J7517

== ENCOUNTER 2020-07-22 18:43 | Inpatient (IN) | payer MEDICARE, OTHER ==
[~2020-07-22] VITALS: Ht 154.9 cm; Wt 86.3 kg
[~2020-07-22 18:43] MED LIST changes: +CEPH-569 PO
--- NOTE | 2020-07-22 19:00 | NUR ---
Pt ambulatory to room 5a. Pt's son stated he will get a list of pt's current home medications later.
[2020-07-22] MEDS ORDERED: IV NORMAL SALINE 1000 ML BAG IV ONE (19:15)
[2020-07-22] MEDS ORDERED: HYDROMORPHONE 1 MG/1 ML DISP.SYRIN IV ONE (19:15)
[2020-07-22] MEDS ORDERED: ONDANSETRON 4 MG/2 ML VIAL IV ONE (19:15)
[2020-07-22 19:52] LABS: BASOPHILS % (AUTO) 0.3 % (0.0-2.0); EOSINOPHILS % (AUTO) 0.3 % (0.0-7.0); HEMATOCRIT 41.5 % (31.2-41.9); HEMOGLOBIN 13.2 g/dL (10.9-14.3); LYMPHOCYTES # (AUTO) 1.3 K/uL (20.0-40.0); LYMPHOCYTES % (AUTO) 8.2 % (20.5-51.5); MEAN CORPUSCULAR HEMOGLOBIN 27.3 uug (24.7-32.8); MEAN CORPUSCULAR HGB CONC 32 g/dL (32.3-35.6); MEAN CORPUSCULAR VOLUME 85.9 fL (75.5-95.3); MONOCYTES # (AUTO) 1.2 K/uL (2.0-10.0); MONOCYTES % (AUTO) 7.3 % (0.0-11.0); NEUTROPHILS # (AUTO) 13.4 K/uL (1.8-8.9); NEUTROPHILS % (AUTO) 83.9 % (38.5-71.5); PLATELET COUNT (AUTO) 298 K/uL (179-408); RED BLOOD CELL COUNT(AUTO) 4.83 MIL/uL (3.63-4.92)
[2020-07-22 19:58] LABS: CREATININE 1.2 mg/dL (0.6-1.3); POTASSIUM 4.2 mmol/L (3.5-5.1)
[2020-07-22] MEDS ORDERED: ONDANSETRON 4 MG/2 ML VIAL ONE (20:00)
[2020-07-22] MEDS ORDERED: HYDROMORPHONE 1 MG/1 ML DISP.SYRIN ONE (20:01)
[2020-07-22 20:10] LABS: BILIRUBIN,DIRECT 0.1 mg/dL (0.0-0.2); BILIRUBIN,TOTAL 0.3 mg/dL (0.2-1.0); TOTAL PROTEIN, SERUM 7.8 g/dL (6.4-8.2)
[2020-07-22 20:13] LABS: *BILIRUBIN,URIN NEGATIVE (NEGATIVE); *BLOOD, URINE 1+ (NEGATIVE); *CLARITY,URINE SLIGHTLY CLOUDY (CLEAR); *COLOR,URINE YELLOW (YELLOW); *KETONES,URINE NEGATIVE (NEGATIVE); *UROBILINOGEN,URINE 0.2 E.U./dl (NORMAL); LEUKOCYTE ESTERASE ,URINE 1+ (NEGATIVE); NITRITE, URINE NEGATIVE (NEGATIVE); PH,URINE 5.5 (5.0-8.0); UGLUCOSE 1+ (NEGATIVE)
[2020-07-22] MEDS ORDERED: IV NS 1000 ML 1,000 ML IV ONE (20:15)
[2020-07-22 20:38] LABS: BACTERIA,URINE MANY /HPF (NONE SEEN); SQUAMOUS EPITHELIAL CELL,UR FEW /HPF (NONE SEEN)
[2020-07-22] MEDS ORDERED: CEFTRIAXONE 1 G in IV DEXTROSE 5% 50 ML IV ONE (20:45)
[2020-07-22] MEDS ORDERED: OMEP40CA21 PO (20:56)
[2020-07-22] MEDS ORDERED: SITA100T PO (20:56)
[2020-07-22] MEDS ORDERED: AZITHROMYCIN IV 500 MG in IV DEXTROSE 5% 250 ML IV SCH (21:00)
[2020-07-22] MEDS ORDERED: CEFTRIAXONE /D5W 50ML IVPB **ER PYXIS IV ONE (21:10)
--- NOTE | 2020-07-22 21:10 | NUR ---
Note cody in ED - 07/22/20 at 2111 by ESDRAS Pt. admitted to Telemetry, under care of Dr. Parham. Diagnosis: UTI Belongs List completed
--- NOTE | 2020-07-22 21:18 | NUR ---
Pt. admitted to Telemetry, under care of Dr. Jagjit Baker Dx: UTI Belongs List completed
[2020-07-22] MEDS ORDERED: AZITHROMYCIN 500MG/ D5W 250ML IVPB **ER PYXIS ONLY IV ONE (21:31)
--- NOTE | 2020-07-22 22:51 | NUR ---
Report given to Malinda. Patient going to Room 303.
--- NOTE | 2020-07-22 23:08 | NUR ---
Received patient via gurney from the ED admitted for UTI under Dr. Baker. Patient AAOx4, no acute distress noted at this time. Pt on 2L NC O2 @ 94%, on RA between 90-91%. Patient denies SOB and chest pain at this time. Ambulatory and steady. patient monitor in place. Right AC IV patent and intact. Safety measures in place.
[2020-07-22 23:23] VITALS: BP 112/65
[2020-07-23] MEDS ORDERED: DEXTROSE 50% 50 ML DISP.SYRIN IV PRN (00:15)
[2020-07-23] MEDS ORDERED: ONDANSETRON 4 MG/2 ML VIAL IV PRN (00:15)
[2020-07-23 00:21] VITALS: BP 108/64
[2020-07-23] MEDS: IV NS 1000 ML 1,000 ML IV PRN ×2 (02:01→22:14)
[2020-07-23] MEDS: ACETAMINOPHEN 325 MG TABLET PO PRN ×2 (05:08→15:42)
[2020-07-23 05:23] VITALS: BP 107/53
[2020-07-23] MEDS: BLOOD SUGAR DIAGNOSTIC 1 EACH STRIP VI SCH ×4 (06:35→21:13)
--- NOTE | 2020-07-23 06:36 | NUR ---
Patient noted to have elevated temp this morning 100.8, administered PRN tylenol and cooling measures. Rechecked temp 98.4. Patient denies pain and discomfort at this time. All patient needs met and attended to. Right hand IV patent and intact with ordered fluids running. Examined patient in regard to breast cancer history, patient denies stating "no, I have never had cancer" bilateral breast intact. Safety measures in place and will endorse to oncoming nurse.
[2020-07-23 06:49] LABS: BASOPHILS # (AUTO) 0.1 K/uL (0.0-8.0); BASOPHILS % (AUTO) 0.3 % (0.0-2.0); EOSINOPHILS # (AUTO) 0.1 K/uL (0.0-0.7); EOSINOPHILS % (AUTO) 0.7 % (0.0-7.0); HEMATOCRIT 38.5 % (31.2-41.9); HEMOGLOBIN 12.2 g/dL (10.9-14.3); LYMPHOCYTES % (AUTO) 12.2 % (20.5-51.5); MEAN CORPUSCULAR HEMOGLOBIN 27.3 uug (24.7-32.8); MEAN CORPUSCULAR HGB CONC 32 g/dL (32.3-35.6); MEAN CORPUSCULAR VOLUME 86.4 fL (75.5-95.3); MONOCYTES # (AUTO) 2.1 K/uL (2.0-10.0); MONOCYTES % (AUTO) 12.9 % (0.0-11.0); NEUTROPHILS # (AUTO) 12.1 K/uL (1.8-8.9); NEUTROPHILS % (AUTO) 73.9 % (38.5-71.5); PLATELET COUNT (AUTO) 271 K/uL (179-408); RED BLOOD CELL COUNT(AUTO) 4.46 MIL/uL (3.63-4.92); WHITE BLOOD COUNT (AUTO) 16.4 K/uL (3.8-11.8)
[2020-07-23 06:57] LABS: POTASSIUM 4.2 mmol/L (3.5-5.1)
[2020-07-23 07:29] VITALS: BP 104/60
[2020-07-23] MEDS: INSULIN REGULAR, HUMAN 300 UNIT/3 ML VIAL SQ PRN ×4 (07:58→21:09)
--- NOTE | 2020-07-23 08:00 | NUR ---
AWAKE ALERT AND ORIENTED X3, NO SS OF PAIN OR SOB. AFEBRILE
[2020-07-23] MEDS ORDERED: TACROLIMUS ANHYDROUS 1 MG CAPSULE PO SCH (09:17)
[2020-07-23] MEDS: predniSONE 5 MG TABLET PO SCH (09:27)
[2020-07-23] MEDS: BENAZEPRIL HCL 20 MG TABLET PO SCH ×2 (09:28→17:01)
[2020-07-23] MEDS: LEVOTHYROXINE SODIUM 50 MCG TABLET PO SCH (10:03)
[2020-07-23] MEDS: MYCOPHENOLATE MOFETIL 250 MG CAPSULE PO SCH ×2 (10:16→17:01)
[2020-07-23 10:51] VITALS: BP 105/55
[2020-07-23 15:30] VITALS: BP 123/58
--- NOTE | 2020-07-23 15:30 | NUR ---
temp 100.8 orally Tylenol given AND OBSERVED. COOLING MEASURES DONE
[2020-07-23] MEDS: CEFTRIAXONE 1 G in IV DEXTROSE 5% 50 ML IV SCH (15:42)
[2020-07-23] MEDS: TACROLIMUS ANHYDROUS 0.5 MG CAPSULE PO SCH (17:01)
--- NOTE | 2020-07-23 17:35 | NUR ---
CONTINUE WITH IV ANTIBIOTIC, NO REACTION NOTED. LATEST TEMP 99.0 ORALLY
[2020-07-23 21:04] VITALS: BP 104/48
[2020-07-24 04:00] VITALS: BP 120/61
[2020-07-24] MEDS: LEVOTHYROXINE SODIUM 50 MCG TABLET PO SCH (06:29)
--- NOTE | 2020-07-24 06:45 | NUR ---
Patient resting in bed. No s/s of acute distress noted at this time. Patient denies pain and discomfort at this time. Temp at the beginning of the shift 99.1, applied cooling measures, latest temp 98.4 oral. Vital signs stable and safety measures remain intact. Will endorse to oncoming nurse.
[2020-07-24] MEDS: BLOOD SUGAR DIAGNOSTIC 1 EACH STRIP VI SCH ×4 (07:48→20:22)
[2020-07-24] MEDS: INSULIN REGULAR, HUMAN 300 UNIT/3 ML VIAL SQ PRN ×4 (07:50→20:31)
--- NOTE | 2020-07-24 08:00 | NUR ---
awake alert and oriented x3, no ss of pain or sob, comfortable sitting at bedside with 2l nc saturating 95%. continue with iv antibiotics for UTI
[2020-07-24] MEDS: TACROLIMUS ANHYDROUS 0.5 MG CAPSULE PO SCH ×2 (08:05→16:25)
[2020-07-24] MEDS: LINAGLIPTIN 5 MG TABLET PO SCH (08:05)
[2020-07-24] MEDS: predniSONE 5 MG TABLET PO SCH (08:05)
[2020-07-24] MEDS: ACETAMINOPHEN 325 MG TABLET PO PRN (08:05)
[2020-07-24] MEDS: BENAZEPRIL HCL 20 MG TABLET PO SCH ×2 (08:09→20:29)
[2020-07-24] MEDS: PANTOPRAZOLE SODIUM 40 MG TABLET.DR PO SCH (08:10)
[2020-07-24] MEDS: MYCOPHENOLATE MOFETIL 250 MG CAPSULE PO SCH ×2 (08:10→16:25)
[2020-07-24] MEDS ORDERED: NITROFURANTOIN MACROCRYSTAL PO SCH (09:00)
[2020-07-24 11:00] VITALS: BP 96/52
[2020-07-24 13:26] LABS: BASOPHILS # (AUTO) 0.1 K/uL (0.0-8.0); BASOPHILS % (AUTO) 0.6 % (0.0-2.0); EOSINOPHILS # (AUTO) 0.1 K/uL (0.0-0.7); EOSINOPHILS % (AUTO) 1.2 % (0.0-7.0); HEMATOCRIT 36.9 % (31.2-41.9); HEMOGLOBIN 12.2 g/dL (10.9-14.3); LYMPHOCYTES # (AUTO) 1.4 K/uL (20.0-40.0); MEAN CORPUSCULAR HEMOGLOBIN 28.7 uug (24.7-32.8); MEAN CORPUSCULAR HGB CONC 33 g/dL (32.3-35.6); MEAN CORPUSCULAR VOLUME 86.7 fL (75.5-95.3); MONOCYTES # (AUTO) 1.2 K/uL (2.0-10.0); MONOCYTES % (AUTO) 12.2 % (0.0-11.0); NEUTROPHILS # (AUTO) 6.7 K/uL (1.8-8.9); PLATELET COUNT (AUTO) 253 K/uL (179-408); RED BLOOD CELL COUNT(AUTO) 4.25 MIL/uL (3.63-4.92); WHITE BLOOD COUNT (AUTO) 9.4 K/uL (3.8-11.8)
[2020-07-24 13:39] LABS: POTASSIUM 4.4 mmol/L (3.5-5.1)
[2020-07-24] MEDS: CEFTRIAXONE 1 G in IV DEXTROSE 5% 50 ML IV SCH (14:34)
[2020-07-24 16:00] VITALS: BP 104/53
[2020-07-24] MEDS: IV NS 1000 ML 1,000 ML IV PRN (16:22)
--- NOTE | 2020-07-24 18:27 | NUR ---
NO ACUTE CHANGE FROM MORNING ASSESSMENTS, AFEBRILE. CONTINUE WITH IV ANTIBIOTICS
[2020-07-24 20:00] VITALS: BP 162/97
--- NOTE | 2020-07-24 22:30 | NUR ---
with complaints of inability to sleep and requesting for sleeping medication,noted no orders, Dr Read paged and message left, awaiting response
[2020-07-25] VITALS: BP 154/80
[2020-07-25] MEDS: ACETAMINOPHEN 325 MG TABLET PO PRN (00:09)
--- NOTE | 2020-07-25 00:17 | NUR ---
with complaints of headache.tylenol 650 mg po given for headache. informed that the physician was called for the sleeping medication but no response. express understanding
--- NOTE | 2020-07-25 01:41 | NUR ---
asleep.with the same ivf on
[2020-07-25 03:38] VITALS: BP 150/78
--- NOTE | 2020-07-25 03:41 | NUR ---
ambulated to the bathroom to void ,assisted back to bed,tolerated well.with the same ivf on
[2020-07-25] MEDS: LEVOTHYROXINE SODIUM 50 MCG TABLET PO SCH (06:21)
--- NOTE | 2020-07-25 06:31 | NUR ---
blood sugar 173mg/dl/
[2020-07-25] MEDS: BLOOD SUGAR DIAGNOSTIC 1 EACH STRIP VI SCH ×2 (07:02→11:58)
[2020-07-25 07:31] VITALS: BP 142/87
[2020-07-25] MEDS: LINAGLIPTIN 5 MG TABLET PO SCH (08:39)
[2020-07-25] MEDS: MYCOPHENOLATE MOFETIL 250 MG CAPSULE PO SCH (08:39)
[2020-07-25] MEDS: PANTOPRAZOLE SODIUM 40 MG TABLET.DR PO SCH (08:39)
[2020-07-25] MEDS: TACROLIMUS ANHYDROUS 0.5 MG CAPSULE PO SCH (08:39)
[2020-07-25] MEDS: predniSONE 5 MG TABLET PO SCH (08:39)
[2020-07-25] MEDS: BENAZEPRIL HCL 20 MG TABLET PO SCH (08:39)
[2020-07-25] MEDS: IV NS 1000 ML 1,000 ML IV PRN (08:41)
[2020-07-25] MEDS: INSULIN REGULAR, HUMAN 300 UNIT/3 ML VIAL SQ PRN ×2 (08:51→11:59)
[2020-07-25 11:31] VITALS: BP 133/76
[2020-07-25] MEDS ORDERED: SULF1TAB48 PO (12:39)
--- NOTE | 2020-07-25 13:51 | NUR ---
Discharged to home ordered. Pt AAOx3. RA, no SOB. Afebrile. Ambulatory and steady. Denies any pain/discomfort. Education regarding new prescription and importance of follow up care provided; pt verbalized understanding. ID band and IV removed.
== END 2020-07-25 14:20 | disposition home or self-care (01) | DRG 872 ==
LOC: ER 18:44 → TELE3 22:52 → MEDSURG3 07-23 10:00
PROVIDERS: ADMIT Internal Medicine Nephrology; ATTEND Internal Medicine Nephrology
DX: A41.51 Sepsis due to Escherichia coli [E. coli] (principal); Z94.0 Kidney transplant status; N39.0 Urinary tract infection, site not specified; Z79.899 Other long term (current) drug therapy; Z86.16 Personal history of COVID-19; E03.9 Hypothyroidism, unspecified; R53.1 Weakness; Z20.822 Contact with and (suspected) exposure to COVID-19; Z79.890 Hormone replacement therapy; Z85.3 Personal history of malignant neoplasm of breast; Z90.11 Acquired absence of right breast and nipple; E11.65 Type 2 diabetes mellitus with hyperglycemia; Z79.4 Long term (current) use of insulin
CPT/HCPCS: 36415; 70030-TC; 71045; 83605; 85025; 85730; 87040; 87077; 87086; 93005; G0378; J0456; J0696; J1170; J1815; J2405; J7030; J7060; J7507; J7512; J7517

== ENCOUNTER 2023-04-08 02:42 | Inpatient (IN) | payer OTHER, MEDICAID ==
[~2023-04-08] VITALS: Ht 162.6 cm; Wt 81.6 kg
[~2023-04-08 02:42] MED LIST changes: +ATOR10TA PO; -BENA20TA9 PO; -CEPH-569 PO; +INSU100I26; +LISI-782 PO; +METF-442 PO; +MYCO500T5 PO; -NITR50CA PO; +OMEP40CA21 PO; +ZINC220T3 PO; -ZOLP5TAB8 PO
[2023-04-08] MEDS ORDERED: PANTOPRAZOLE SODIUM 40 MG VIAL ONE (03:09)
[2023-04-08] MEDS ORDERED: METOCLOPRAMIDE HCL 10 MG/2 ML VIAL ONE (03:09)
[2023-04-08] MEDS: METOCLOPRAMIDE HCL 10 MG/2 ML VIAL IV ONE (03:14)
[2023-04-08] MEDS: PANTOPRAZOLE SODIUM 40 MG VIAL IV ONE (03:14)
[2023-04-08 03:21] LABS: BASOPHILS # (AUTO) 0.1 K/UL (0.0-0.2); BASOPHILS % (AUTO) 0.7 % (0.0-2.0); EOSINOPHILS # (AUTO) 0.6 K/uL (0.0-0.7); EOSINOPHILS % (AUTO) 3.8 % (0.0-7.0); HEMOGLOBIN 12.3 g/dL (10.9-14.3); LYMPHOCYTES # (AUTO) 4.2 K/uL (0.8-4.8); LYMPHOCYTES % (AUTO) 27.8 % (20.5-51.5); MEAN CORPUSCULAR HEMOGLOBIN 27.5 uug (24.7-32.8); MEAN CORPUSCULAR HGB CONC 33 g/dL (32.3-35.6); MONOCYTES # (AUTO) 1.3 K/uL (0.1-1.30); MONOCYTES % (AUTO) 8.4 % (0.0-11.0); NEUTROPHILS % (AUTO) 59.3 % (38.5-71.5); PLATELET COUNT (AUTO) 383 K/uL (179-408); RED BLOOD CELL COUNT(AUTO) 4.46 MIL/uL (3.63-4.92); RED CELL DISTRIBUTION WIDTH 15.4 % (12.3-17.7); WHITE BLOOD COUNT (AUTO) 15.2 K/uL (3.8-11.8)
[2023-04-08 03:43] LABS: CALCIUM 9.7 mg/dL (8.5-10.1); CARBON DIOXIDE 22 mmol/L (21-32); CHLORIDE 101 mmol/L (98-107); CREATININE 1.3 mg/dL (0.6-1.3); GLUCOSE 217 mg/dL (74-106); POTASSIUM 4.3 mmol/L (3.5-5.1); SODIUM SERUM 133 mmol/L (136-145); UREA NITROGEN, BLOOD 41 mg/dL (7-18)
[2023-04-08 03:44] LABS: DIFFERENTIAL COMMENT 1
[2023-04-08 03:52] LABS: ALANINE AMINOTRANSFERASE 38 U/L (14-59); ALBUMIN 3.1 g/dL (3.4-5.0); ALKALINE PHOSPHATASE 179 U/L (50-136); ASPARTATE AMINOTRANSFERASE 15 U/L (15-37); BILIRUBIN,DIRECT 0.1 mg/dL (0.0-0.2); BILIRUBIN,TOTAL 0.4 mg/dL (0.2-1.0); LIPASE 41 U/L (16-77); TOTAL PROTEIN, SERUM 8.5 g/dL (6.4-8.2)
[2023-04-08] MEDS ORDERED: INSU100V7 SQ (05:05)
[2023-04-08] MEDS: FUROSEMIDE 20 MG/2 ML VIAL IV ONE ×2 (06:00→08:58)
[2023-04-08] MEDS ORDERED: HYDROCODONE/APAP 5-325MG TABLET PO PRN (06:00)
[2023-04-08] MEDS ORDERED: MORPHINE SULFATE 2 MG/1 ML DISP.SYRIN IV PRN (06:00)
[2023-04-08] MEDS ORDERED: MAGNESIUM HYDROXIDE 30 ML LIQUID UDC PO PRN (06:00)
[2023-04-08] MEDS ORDERED: ONDANSETRON 4 MG/2 ML VIAL IV PRN (06:00)
[2023-04-08] MEDS ORDERED: PIPERACILLIN SODIUM/TAZOBACTAM 4.5 G in IV DEXTROSE 5% 50 ML IV SCH (06:00)
[2023-04-08] MEDS ORDERED: ACETAMINOPHEN 325 MG TABLET PO PRN (06:00)
[2023-04-08] MEDS: IV NS 1000 ML 1,000 ML IV PRN (07:54)
[2023-04-08] MEDS: PIPERACILLIN SODIUM/TAZOBACTAM 3.375 G in IV DEXTROSE 5% 100 ML IV SCH (08:01)
[2023-04-08] MEDS: PANTOPRAZOLE SODIUM 40 MG VIAL IV SCH ×2 (08:58→20:42)
[2023-04-08 10:55] LABS: BASOPHILS # (AUTO) 0.1 K/UL (0.0-0.2); BASOPHILS % (AUTO) 0.5 % (0.0-2.0); DIFFERENTIAL COMMENT 0; EOSINOPHILS # (AUTO) 0.5 K/uL (0.0-0.7); HEMATOCRIT 36.6 % (31.2-41.9); HEMOGLOBIN 11.8 g/dL (10.9-14.3); LYMPHOCYTES # (AUTO) 2.6 K/uL (0.8-4.8); LYMPHOCYTES % (AUTO) 21.6 % (20.5-51.5); MEAN CORPUSCULAR HGB CONC 32 g/dL (32.3-35.6); MEAN CORPUSCULAR VOLUME 83.9 fL (75.5-95.3); MONOCYTES % (AUTO) 8.4 % (0.0-11.0); NEUTROPHILS # (AUTO) 7.8 K/uL (1.8-8.9); NEUTROPHILS % (AUTO) 65.5 % (38.5-71.5); PLATELET COUNT (AUTO) 354 K/uL (179-408); RED BLOOD CELL COUNT(AUTO) 4.36 MIL/uL (3.63-4.92); RED CELL DISTRIBUTION WIDTH 15.3 % (12.3-17.7); WHITE BLOOD COUNT (AUTO) 11.9 K/uL (3.8-11.8)
[2023-04-08] MEDS ORDERED: DEXTROSE 50% 50 ML DISP.SYRIN IV PRN (11:45)
[2023-04-08 12:01] LABS: *BILIRUBIN,URIN NEGATIVE (NEGATIVE); *BLOOD, URINE NEGATIVE (NEGATIVE); *CLARITY,URINE CLEAR (CLEAR); *COLOR,URINE YELLOW (YELLOW); *KETONES,URINE NEGATIVE (NEGATIVE); *PROTEIN,URINE NEGATIVE (NEGATIVE); *UROBILINOGEN,URINE 0.2 E.U./dl (NORMAL); LEUKOCYTE ESTERASE ,URINE 2+ (NEGATIVE); NITRITE, URINE POSITIVE (NEGATIVE); UGLUCOSE NEGATIVE (NEGATIVE)
[2023-04-08 12:27] LABS: BACTERIA,URINE MANY /HPF (NONE SEEN); RBC,URINE 0-3 /HPF (0-3); SQUAMOUS EPITHELIAL CELL,UR MODERATE /HPF (NONE SEEN); WBC,URINE 50-80 /HPF (0-3)
[2023-04-08] MEDS: MYCOPHENOLATE MOFETIL 250 MG CAPSULE PO SCH (13:47)
[2023-04-08] MEDS: TACROLIMUS ANHYDROUS 0.5 MG CAPSULE PO SCH (13:48)
[2023-04-08 15:56] VITALS: BP 112/61; TEMP 98.2; O2SAT 97
[2023-04-08] MEDS: BLOOD SUGAR DIAGNOSTIC 1 EACH STRIP VI SCH (16:23)
[2023-04-08] MEDS: INSULIN REGULAR, HUMAN 300 UNIT/3 ML VIAL SQ PRN (16:27)
[2023-04-08] MEDS: ATORVASTATIN 10 MG TABLET PO SCH (20:42)
[2023-04-08] MEDS: INSULIN GLARGINE,HUM 300 UNITS/3 ML CARTRIDGE SQ SCH (20:52)
[2023-04-08] MEDS: INSULIN REGULAR, HUMAN 300 UNITS/3 ML VIAL SQ PRN (20:53)
[2023-04-08 22:33] VITALS: BP 118/55; TEMP 98.2; O2SAT 99
[2023-04-09 01:52] VITALS: BP 123/49; TEMP 98.2; O2SAT 99
[2023-04-09] MEDS: LEVOTHYROXINE SODIUM 50 MCG TABLET PO SCH (06:10)
[2023-04-09 06:23] LABS: BASOPHILS # (AUTO) 0.1 K/UL (0.0-0.2); BASOPHILS % (AUTO) 0.6 % (0.0-2.0); EOSINOPHILS # (AUTO) 0.7 K/uL (0.0-0.7); EOSINOPHILS % (AUTO) 5.7 % (0.0-7.0); HEMATOCRIT 36.7 % (31.2-41.9); LYMPHOCYTES % (AUTO) 23.6 % (20.5-51.5); MEAN CORPUSCULAR HEMOGLOBIN 27.2 uug (24.7-32.8); MEAN CORPUSCULAR HGB CONC 33 g/dL (32.3-35.6); MEAN CORPUSCULAR VOLUME 83.1 fL (75.5-95.3); MONOCYTES # (AUTO) 1.3 K/uL (0.1-1.30); MONOCYTES % (AUTO) 9.9 % (0.0-11.0); NEUTROPHILS # (AUTO) 7.7 K/uL (1.8-8.9); NEUTROPHILS % (AUTO) 60.2 % (38.5-71.5); PLATELET COUNT (AUTO) 373 K/uL (179-408); RED BLOOD CELL COUNT(AUTO) 4.42 MIL/uL (3.63-4.92); RED CELL DISTRIBUTION WIDTH 15.3 % (12.3-17.7); WHITE BLOOD COUNT (AUTO) 12.7 K/uL (3.8-11.8)
[2023-04-09 06:50] LABS: DIFFERENTIAL COMMENT 1
[2023-04-09 07:03] LABS: CALCIUM 9.6 mg/dL (8.5-10.1); CREATININE 1.2 mg/dL (0.6-1.3); MAGNESIUM 1.5 mg/dL (1.8-2.4); PHOSPHOROUS 3.6 mg/dL (2.5-4.9); POTASSIUM 3.8 mmol/L (3.5-5.1)
[2023-04-09 08:00] VITALS: BP 116/90; TEMP 97.6; O2SAT 97
[2023-04-09] MEDS ORDERED: FLUCONAZOLE 100 MG TABLET PO SCH (09:00)
[2023-04-09] MEDS ORDERED: KETAMINE HCL 500 MG/5 ML VIAL ONE (10:41)
[2023-04-09] MEDS ORDERED: ETOMIDATE 20 MG/10 ML VIAL ONE (10:43)
[2023-04-09] MEDS ORDERED: SIMV-49 PO (11:23)
[2023-04-09] MEDS ORDERED: LISI20TA30 PO (11:25)
[2023-04-09] MEDS ORDERED: APIX5TAB PO (11:26)
[2023-04-09] MEDS ORDERED: SUCR1TAB PO (11:34)
[2023-04-09] MEDS ORDERED: VIT D PO (11:42)
[2023-04-09] MEDS ORDERED: PANT40TA49 PO (11:43)
[2023-04-09] MEDS: predniSONE 5 MG TABLET PO SCH (11:51)
[2023-04-09] MEDS: ZINC SULFATE 220 MG CAPSULE PO SCH (11:51)
[2023-04-09] MEDS: LISINOPRIL 5 MG TABLET PO SCH (11:51)
[2023-04-09] MEDS: MAGNESIUM SULFATE/D5W 100 ML IV SCH (12:33)
[2023-04-09] MEDS ORDERED: INSU100V39 SQ (13:55)
[2023-04-09] MEDS ORDERED: CEPH500T PO (14:27)
[2023-04-09 16:01] VITALS: BP 122/69; TEMP 97.6; O2SAT 97
== END 2023-04-09 17:15 | disposition home or self-care (01) | DRG 377 ==
LOC: ER 02:45 → DOU3 04:58 → TELE3 07:25 → TELE-TD3 07:42 → TELE3 07:50
PROVIDERS: ATTEND Nurse Practitioner Acute Care
PROC: 0DB68ZX Excision of Stomach, Via Natural or Artificial Opening Endoscopic, Diagnostic (ICD-10-PCS; principal; 2023-04-09)
DX: K92.0 Hematemesis (principal); I50.33 Acute on chronic diastolic (congestive) heart failure; E87.1 Hypo-osmolality and hyponatremia; I13.0 Hypertensive heart and chronic kidney disease with heart failure and stage 1 through stage 4 chronic kidney disease, or unspecified chronic kidney disease; N17.9 Acute kidney failure, unspecified; T86.19 Other complication of kidney transplant; Z94.0 Kidney transplant status; D84.821 Immunodeficiency due to drugs; K20.90 Esophagitis, unspecified without bleeding; K29.70 Gastritis, unspecified, without bleeding; I48.0 Paroxysmal atrial fibrillation; E11.22 Type 2 diabetes mellitus with diabetic chronic kidney disease; N18.9 Chronic kidney disease, unspecified; K31.84 Gastroparesis; E78.5 Hyperlipidemia, unspecified; E11.43 Type 2 diabetes mellitus with diabetic autonomic (poly)neuropathy; E83.42 Hypomagnesemia; E03.9 Hypothyroidism, unspecified; K80.20 Calculus of gallbladder without cholecystitis without obstruction; K57.90 Diverticulosis of intestine, part unspecified, without perforation or abscess without bleeding; Z86.718 Personal history of other venous thrombosis and embolism; Z79.01 Long term (current) use of anticoagulants; Z79.4 Long term (current) use of insulin; Z79.85 Long-term (current) use of injectable non-insulin antidiabetic drugs; Z79.52 Long term (current) use of systemic steroids; Z79.624 Long term (current) use of inhibitors of nucleotide synthesis; Z79.621 Long term (current) use of calcineurin inhibitor; Z87.891 Personal history of nicotine dependence
CPT/HCPCS: 36415; 71045; 71250; 83690; 83735; 84100; 84484; 85025; 85730; 86850; 86900; 86901; 87040; 88313-TC; 88342; 93005; 93307; C9113; G0378; J1815; J1940; J2543; J2765; J3475; J3490; J7040; J7507; J7512; J7517

== ENCOUNTER 2023-04-14 17:17 | Inpatient (IN) | payer OTHER, MEDICAID ==
[~2023-04-14] VITALS: Ht 162.6 cm; Wt 64.9 kg
[~2023-04-14 17:17] MED LIST changes: +APIX5TAB PO; -ATOR10TA PO; +CEPH500T PO; -DULA1.5P SQ; -INSU100I26; +INSU100V39 SQ; +INSU100V7 SQ; -LISI-782 PO; +LISI20TA30 PO; -METF-442 PO; -MYCO500T5 PO; -OMEP40CA21 PO; +PANT40TA49 PO; +SIMV-49 PO; +SUCR1TAB PO; +VIT D PO; -ZINC220T3 PO
[2023-04-14] MEDS: MAGNESIUM SULFATE 2 GM in IV DEXTROSE 5% 100 ML IV ONE (17:45)
[2023-04-14] MEDS: OXYCODONE/APAP 5-325 MG TABLET PO ONE (17:45)
[2023-04-14] MEDS ORDERED: MAGNESIUM SULFATE/D5W 200 ML ONE (17:54)
[2023-04-14] MEDS: ALBUTEROL SULFATE 2.5 MG/3 ML NEBU NEB ONE (17:58)
[2023-04-14] MEDS: IPRATROPIUM BROMIDE 0.5 MG/2.5 ML NEBU NEB ONE (17:58)
[2023-04-14] MEDS ORDERED: IPRATROPIUM BROMIDE 0.5 MG/2.5 ML NEBU ONE (18:00)
[2023-04-14] MEDS ORDERED: ALBUTEROL SULFATE 2.5 MG/3 ML NEBU ONE (18:00)
[2023-04-14 18:02] LABS: BASOPHILS # (AUTO) 0.1 K/UL (0.0-0.2); BASOPHILS % (AUTO) 0.7 % (0.0-2.0); EOSINOPHILS # (AUTO) 0.3 K/uL (0.0-0.7); EOSINOPHILS % (AUTO) 2.5 % (0.0-7.0); HEMOGLOBIN 11.4 g/dL (10.9-14.3); LYMPHOCYTES # (AUTO) 3.2 K/uL (0.8-4.8); LYMPHOCYTES % (AUTO) 28.6 % (20.5-51.5); MEAN CORPUSCULAR HGB CONC 33 g/dL (32.3-35.6); MEAN CORPUSCULAR VOLUME 82.7 fL (75.5-95.3); MONOCYTES # (AUTO) 1.1 K/uL (0.1-1.30); MONOCYTES % (AUTO) 9.7 % (0.0-11.0); NEUTROPHILS # (AUTO) 6.5 K/uL (1.8-8.9); NEUTROPHILS % (AUTO) 58.5 % (38.5-71.5); PLATELET COUNT (AUTO) 386 K/uL (179-408); RED BLOOD CELL COUNT(AUTO) 4.23 MIL/uL (3.63-4.92); RED CELL DISTRIBUTION WIDTH 15.5 % (12.3-17.7); WHITE BLOOD COUNT (AUTO) 11.1 K/uL (3.8-11.8)
[2023-04-14 18:04] LABS: DIFFERENTIAL COMMENT 1
[2023-04-14 18:12] LABS: CARBON DIOXIDE 28 mmol/L (21-32); CHLORIDE 101 mmol/L (98-107); CREATININE 1.3 mg/dL (0.6-1.3); GLUCOSE 221 mg/dL (74-106); SODIUM SERUM 138 mmol/L (136-145); UREA NITROGEN, BLOOD 34 mg/dL (7-18)
[2023-04-14 18:25] LABS: ALANINE AMINOTRANSFERASE 34 U/L (14-59); ALBUMIN 3.1 g/dL (3.4-5.0); ALKALINE PHOSPHATASE 141 U/L (50-136); ASPARTATE AMINOTRANSFERASE 20 U/L (15-37); BILIRUBIN,DIRECT 0.1 mg/dL (0.0-0.2); BILIRUBIN,TOTAL 0.2 mg/dL (0.2-1.0); NT-PRO BNP 57 pg/mL (0-125); TOTAL PROTEIN, SERUM 7.7 g/dL (6.4-8.2)
[2023-04-14] MEDS ORDERED: OXYCODONE/APAP 5-325 MG TABLET ONE (18:48)
[2023-04-14 18:51] VITALS: O2SAT 98
[2023-04-14] MEDS ORDERED: MAGNESIUM SULFATE/D5W 100 ML ONE (18:58)
[2023-04-14] MEDS: MAGNESIUM SULFATE/D5W 100 ML IV SCH (19:03)
[2023-04-14] MEDS ORDERED: MAGNESIUM HYDROXIDE 30 ML LIQUID UDC PO PRN (21:00)
[2023-04-14] MEDS ORDERED: REMEDY ESSENTIAL ZINC PASTE 113 GM TP PRN (21:00)
[2023-04-14] MEDS ORDERED: DEXTROSE 50% 50 ML DISP.SYRIN IV PRN (21:00)
[2023-04-14] MEDS ORDERED: OXYCODONE/APAP 5-325 MG TABLET PO PRN (21:00)
[2023-04-14] MEDS ORDERED: ONDANSETRON 4 MG/2 ML VIAL IV PRN (21:00)
[2023-04-14] MEDS: FUROSEMIDE 20 MG/2 ML VIAL IV ONE (21:27)
[2023-04-14] MEDS: BLOOD SUGAR DIAGNOSTIC 1 EACH STRIP VI SCH (22:05)
[2023-04-14 22:30] VITALS: BP 97/56; TEMP 98; O2SAT 92
[2023-04-15] VITALS (7 sets, daily range): BP systolic 104–127; BP diastolic 48–78; TEMP 97.6–99; O2SAT 94–98
[2023-04-15] MEDS: SUCRALFATE 1 G TABLET PO SCH (00:18)
[2023-04-15] MEDS: PANTOPRAZOLE SODIUM 40 MG TABLET.DR PO SCH (06:55)
[2023-04-15] MEDS: LEVOTHYROXINE SODIUM 50 MCG TABLET PO SCH (06:55)
[2023-04-15 07:07] LABS: BASOPHILS # (AUTO) 0.1 K/UL (0.0-0.2); BASOPHILS % (AUTO) 0.5 % (0.0-2.0); EOSINOPHILS # (AUTO) 0.3 K/uL (0.0-0.7); EOSINOPHILS % (AUTO) 2.9 % (0.0-7.0); HEMATOCRIT 34.2 % (31.2-41.9); HEMOGLOBIN 11.1 g/dL (10.9-14.3); LYMPHOCYTES # (AUTO) 3.5 K/uL (0.8-4.8); LYMPHOCYTES % (AUTO) 35.8 % (20.5-51.5); MEAN CORPUSCULAR HEMOGLOBIN 27.2 uug (24.7-32.8); MEAN CORPUSCULAR HGB CONC 32 g/dL (32.3-35.6); MEAN CORPUSCULAR VOLUME 83.9 fL (75.5-95.3); MONOCYTES # (AUTO) 1.2 K/uL (0.1-1.30); MONOCYTES % (AUTO) 12.6 % (0.0-11.0); NEUTROPHILS # (AUTO) 4.7 K/uL (1.8-8.9); NEUTROPHILS % (AUTO) 48.2 % (38.5-71.5); PLATELET COUNT (AUTO) 342 K/uL (179-408); RED BLOOD CELL COUNT(AUTO) 4.08 MIL/uL (3.63-4.92); RED CELL DISTRIBUTION WIDTH 15.3 % (12.3-17.7); WHITE BLOOD COUNT (AUTO) 9.8 K/uL (3.8-11.8)
[2023-04-15 07:11] LABS: DIFFERENTIAL COMMENT 1
[2023-04-15 07:53] LABS: CALCIUM 9.6 mg/dL (8.5-10.1); CREATININE 1.2 mg/dL (0.6-1.3); MAGNESIUM 2.3 mg/dL (1.8-2.4); PHOSPHOROUS 5.3 mg/dL (2.5-4.9); POTASSIUM 3.8 mmol/L (3.5-5.1)
[2023-04-15] MEDS: INSULIN REGULAR, HUMAN 300 UNIT/3 ML VIAL SQ PRN (08:28)
[2023-04-15] MEDS: TACROLIMUS ANHYDROUS 0.5 MG CAPSULE PO SCH (08:28)
[2023-04-15] MEDS: predniSONE 5 MG TABLET PO SCH (08:28)
[2023-04-15] MEDS: MYCOPHENOLATE MOFETIL 250 MG CAPSULE PO ONE ×2 (08:29→10:52)
[2023-04-15] MEDS ORDERED: MYCOPHENOLATE MOFETIL 250 MG CAPSULE PO SCH (09:00)
[2023-04-15] MEDS: levoFLOXacin 500 MG/D5W 100 ML IV ONE (13:27)
[2023-04-15] MEDS: MYCOPHENOLATE MOFETIL 250 MG CAPSULE PO SCH (16:40)
[2023-04-15] MEDS: APIXABAN 5 MG TABLET PO SCH (16:42)
[2023-04-15] MEDS: INSULIN REGULAR, HUMAN 300 UNIT/3 ML VIAL SQ SCH (17:15)
[2023-04-15] MEDS ORDERED: INSULIN LISPRO 1000 UNITS/10 ML VIAL(HUMALOG) SQ SCH (18:00)
[2023-04-15] MEDS: INSULIN REGULAR, HUMAN 300 UNITS/3 ML VIAL SQ PRN (20:18)
[2023-04-15 21:39] LABS: *BILIRUBIN,URIN NEGATIVE (NEGATIVE); *BLOOD, URINE NEGATIVE (NEGATIVE); *COLOR,URINE YELLOW (YELLOW); *KETONES,URINE NEGATIVE (NEGATIVE); *PROTEIN,URINE NEGATIVE (NEGATIVE); *UROBILINOGEN,URINE 0.2 E.U./dl (NORMAL); LEUKOCYTE ESTERASE ,URINE TRACE (NEGATIVE); NITRITE, URINE POSITIVE (NEGATIVE); UGLUCOSE NEGATIVE (NEGATIVE)
[2023-04-15 21:40] LABS: *CLARITY,URINE HAZY (CLEAR)
[2023-04-15 21:48] LABS: *CREATININE,URINE 79.4 mg/dL (30-125); *URINE TOTAL PROTEIN RANDOM 16.4 mg/dL (<150/24HR)
[2023-04-15 22:15] LABS: BACTERIA,URINE MANY /HPF (NONE SEEN); RBC,URINE 0-3 /HPF (0-3)
[2023-04-15 22:16] LABS: SQUAMOUS EPITHELIAL CELL,UR FEW /HPF (NONE SEEN)
[2023-04-15] MEDS: ACETAMINOPHEN 325 MG TABLET PO PRN (22:39)
[2023-04-15] MEDS: GUAIFENESIN/DEXTROMETHORPHAN 5 ML UDC PO PRN (23:46)
[2023-04-16 00:17] VITALS: BP 123/56; TEMP 97.7; O2SAT 94
[2023-04-16 04:44] VITALS: BP 130/66; TEMP 97.5; O2SAT 98
[2023-04-16 07:46] LABS: BASOPHILS % (AUTO) 0.4 % (0.0-2.0); EOSINOPHILS # (AUTO) 0.4 K/uL (0.0-0.7); EOSINOPHILS % (AUTO) 4.4 % (0.0-7.0); HEMATOCRIT 36.4 % (31.2-41.9); LYMPHOCYTES # (AUTO) 3.4 K/uL (0.8-4.8); LYMPHOCYTES % (AUTO) 35.7 % (20.5-51.5); MEAN CORPUSCULAR HEMOGLOBIN 27.5 uug (24.7-32.8); MEAN CORPUSCULAR HGB CONC 33 g/dL (32.3-35.6); MEAN CORPUSCULAR VOLUME 83.1 fL (75.5-95.3); MONOCYTES # (AUTO) 0.8 K/uL (0.1-1.30); MONOCYTES % (AUTO) 8.8 % (0.0-11.0); NEUTROPHILS # (AUTO) 4.8 K/uL (1.8-8.9); NEUTROPHILS % (AUTO) 50.7 % (38.5-71.5); PLATELET COUNT (AUTO) 368 K/uL (179-408); RED BLOOD CELL COUNT(AUTO) 4.38 MIL/uL (3.63-4.92); RED CELL DISTRIBUTION WIDTH 15.4 % (12.3-17.7); WHITE BLOOD COUNT (AUTO) 9.4 K/uL (3.8-11.8)
[2023-04-16 07:51] VITALS: BP 142/63; TEMP 97.6; O2SAT 97
[2023-04-16 07:57] LABS: DIFFERENTIAL COMMENT 1
[2023-04-16 08:06] LABS: BILIRUBIN,TOTAL 0.3 mg/dL (0.2-1.0); CALCIUM 9.5 mg/dL (8.5-10.1); CREATININE 1.2 mg/dL (0.6-1.3); MAGNESIUM 1.8 mg/dL (1.8-2.4); POTASSIUM 4.1 mmol/L (3.5-5.1); TOTAL PROTEIN, SERUM 7.7 g/dL (6.4-8.2)
[2023-04-16] MEDS: LISINOPRIL 20 MG TABLET PO SCH (08:16)
[2023-04-16] MEDS: methylPREDNISolone SOD SUCC 40 MG/ML VIAL IV ONE (09:56)
[2023-04-16] MEDS: LEVOFLOXACIN/D5W 250 MG in PREMIX 1 EA IV SCH (13:00)
[2023-04-16 16:08] VITALS: BP 110/61; TEMP 97.8; O2SAT 97
[2023-04-16 20:00] VITALS: BP 148/73; TEMP 97.3; O2SAT 95
[2023-04-17 06:24] VITALS: BP 133/77; TEMP 97.5; O2SAT 95
[2023-04-17 06:58] LABS: BASOPHILS % (AUTO) 0.2 % (0.0-2.0); HEMATOCRIT 36.2 % (31.2-41.9); HEMOGLOBIN 11.8 g/dL (10.9-14.3); LYMPHOCYTES % (AUTO) 20.5 % (20.5-51.5); MEAN CORPUSCULAR HGB CONC 33 g/dL (32.3-35.6); MEAN CORPUSCULAR VOLUME 82.9 fL (75.5-95.3); MONOCYTES % (AUTO) 7.3 % (0.0-11.0); NEUTROPHILS # (AUTO) 10.4 K/uL (1.8-8.9); PLATELET COUNT (AUTO) 397 K/uL (179-408); RED BLOOD CELL COUNT(AUTO) 4.37 MIL/uL (3.63-4.92); WHITE BLOOD COUNT (AUTO) 14.4 K/uL (3.8-11.8)
[2023-04-17 07:08] LABS: DIFFERENTIAL COMMENT 1
[2023-04-17 07:09] LABS: CALCIUM 10.1 mg/dL (8.5-10.1); CREATININE 1.2 mg/dL (0.6-1.3); PHOSPHOROUS 2.9 mg/dL (2.5-4.9); POTASSIUM 4.3 mmol/L (3.5-5.1)
[2023-04-17 11:30] VITALS: BP 108/59; TEMP 97.9; O2SAT 94
[2023-04-17 12:00] VITALS: O2SAT 96
[2023-04-17] MEDS: methylPREDNISolone SOD SUCC 40 MG/ML VIAL IV ONE (12:30)
[2023-04-17] MEDS ORDERED: ALBU8.5H8 INH (15:35)
[2023-04-17] MEDS ORDERED: METH4TAB3 PO (15:35)
[2023-04-17 16:26] VITALS: BP 115/66; TEMP 97.6; O2SAT 95
[2023-04-18 20:06] LABS: ADENOVIRUS Not Detected (Not Detected); CORONAVIRUS 229E Not Detected (Not Detected); CORONAVIRUS HKU1 Not Detected (Not Detected); CORONAVIRUS NL63 Not Detected (Not Detected); CORONAVIRUS OC43 Not Detected (Not Detected); NP BORDETELLA PERTUSIS Not Detected (Not Detected); NP CHLAMYDOPHILA PNEUMONIAE Not Detected (Not Detected); NP HUMAN METAPNEUMOVIRUS Not Detected (Not Detected); NP HUMAN RHINO/ENTERO VIRUS Not Detected (Not Detected); NP INFLUENZA A Not Detected (Not Detected); NP INFLUENZA A/H1 Not Detected (Not Detected); NP INFLUENZA A/H1-2009 Not Detected (Not Detected); NP INFLUENZA A/H3 Not Detected (Not Detected); NP INFLUENZA B Not Detected (Not Detected); NP MYCOPLASMA PNEUMONIAE Not Detected (Not Detected); NP PARAINFLUENZA 1 Not Detected (Not Detected); NP PARAINFLUENZA 2 Not Detected (Not Detected); NP PARAINFLUENZA 3 Not Detected (Not Detected); NP PARAINFLUENZA 4 Not Detected (Not Detected); NP RESPIRATORY SYNCYTIAL VIRUS Detected (Not Detected)
== END 2023-04-17 16:30 | disposition home or self-care (01) | DRG 193 ==
LOC: ER 17:25 → TELE3 22:00 → MEDSURG3 04-16 09:50
PROVIDERS: ADMIT Internal Medicine; ATTEND Internal Medicine
DX: J12.9 Viral pneumonia, unspecified (principal); I50.33 Acute on chronic diastolic (congestive) heart failure; J96.01 Acute respiratory failure with hypoxia; J47.0 Bronchiectasis with acute lower respiratory infection; I13.0 Hypertensive heart and chronic kidney disease with heart failure and stage 1 through stage 4 chronic kidney disease, or unspecified chronic kidney disease; Z94.0 Kidney transplant status; I48.20 Chronic atrial fibrillation, unspecified; D84.821 Immunodeficiency due to drugs; J84.9 Interstitial pulmonary disease, unspecified; J45.909 Unspecified asthma, uncomplicated; I48.0 Paroxysmal atrial fibrillation; E83.42 Hypomagnesemia; E78.5 Hyperlipidemia, unspecified; E11.22 Type 2 diabetes mellitus with diabetic chronic kidney disease; N18.9 Chronic kidney disease, unspecified; E03.9 Hypothyroidism, unspecified; I25.10 Atherosclerotic heart disease of native coronary artery without angina pectoris; E11.65 Type 2 diabetes mellitus with hyperglycemia; D64.9 Anemia, unspecified; Z79.01 Long term (current) use of anticoagulants; Z87.440 Personal history of urinary (tract) infections; Z87.891 Personal history of nicotine dependence; Z86.718 Personal history of other venous thrombosis and embolism; Z90.10 Acquired absence of unspecified breast and nipple; Z79.84 Long term (current) use of oral hypoglycemic drugs; Z79.890 Hormone replacement therapy; Z79.624 Long term (current) use of inhibitors of nucleotide synthesis; Z87.19 Personal history of other diseases of the digestive system; Z79.4 Long term (current) use of insulin
CPT/HCPCS: 36415; 70220; 71045; 71250; 82785; 83605; 83735; 84100; 84300; 84484; 85025; 86140; 93005; G0378; J1815; J1940; J1956; J2920; J3475; J3590; J7507; J7512; J7517

== ENCOUNTER 2024-01-02 17:49 | Inpatient (IN) | payer OTHER ==
[~2024-01-02] VITALS: Ht 162.6 cm; Wt 83.1 kg
[~2024-01-02 17:49] MED LIST changes: +ALBU8.5H8 INH; -CEPH500T PO; +METH4TAB3 PO
[2024-01-02] MEDS ORDERED: LOSA25TA27 PO (18:15)
[2024-01-02] MEDS ORDERED: MYCO250C PO (18:15)
[2024-01-02] MEDS ORDERED: LEVO50TA8 PO (18:15)
[2024-01-02] MEDS ORDERED: METF-440 PO (18:15)
[2024-01-02] MEDS ORDERED: TACR1CAP7 PO (18:15)
[2024-01-02] MEDS ORDERED: TACR1CAP2 PO (18:15)
[2024-01-02] MEDS ORDERED: SEMA0.25 SQ (18:15)
[2024-01-02] MEDS ORDERED: INSU3INS6 SQ (18:17)
[2024-01-02] MEDS ORDERED: CEFTRIAXONE /D5W 50ML IVPB **ER PYXIS IV ONE (18:33)
[2024-01-02] MEDS: CEFTRIAXONE 1 G in IV DEXTROSE 5% 50 ML IV ONE (18:41)
[2024-01-02 18:53] LABS: BASOPHILS # (AUTO) 0.1 K/UL (0.0-0.2); BASOPHILS % (AUTO) 0.4 % (0.0-2.0); EOSINOPHILS # (AUTO) 0.2 K/uL (0.0-0.7); EOSINOPHILS % (AUTO) 1.2 % (0.0-7.0); HEMATOCRIT 34.5 % (31.2-41.9); HEMOGLOBIN 11.1 g/dL (10.9-14.3); LYMPHOCYTES # (AUTO) 3.6 K/uL (0.8-4.8); LYMPHOCYTES % (AUTO) 24.8 % (20.5-51.5); MEAN CORPUSCULAR HEMOGLOBIN 26.4 uug (24.7-32.8); MEAN CORPUSCULAR HGB CONC 32 g/dL (32.3-35.6); MEAN CORPUSCULAR VOLUME 82.2 fL (75.5-95.3); MONOCYTES # (AUTO) 0.9 K/uL (0.1-1.30); MONOCYTES % (AUTO) 6.3 % (0.0-11.0); NEUTROPHILS # (AUTO) 9.7 K/uL (1.8-8.9); NEUTROPHILS % (AUTO) 67.3 % (38.5-71.5); PLATELET COUNT (AUTO) 349 K/uL (179-408); RED CELL DISTRIBUTION WIDTH 15.4 % (12.3-17.7); WHITE BLOOD COUNT (AUTO) 14.5 K/uL (3.8-11.8)
[2024-01-02 18:55] LABS: *BILIRUBIN,URIN NEGATIVE (NEGATIVE); *CLARITY,URINE CLEAR (CLEAR); *COLOR,URINE YELLOW (YELLOW); *KETONES,URINE NEGATIVE (NEGATIVE); *PROTEIN,URINE 1+ (NEGATIVE); *UROBILINOGEN,URINE 0.2 E.U./dl (NORMAL); LEUKOCYTE ESTERASE ,URINE 1+ (NEGATIVE); NITRITE, URINE POSITIVE (NEGATIVE); PH,URINE 5.5 (5.0-8.0); UGLUCOSE 1+ (NEGATIVE)
[2024-01-02 18:55] LABS: DIFFERENTIAL COMMENT 1
[2024-01-02 18:59] LABS: *BLOOD, URINE TRACE (NEGATIVE)
[2024-01-02 19:00] VITALS: O2SAT 97
[2024-01-02 19:04] LABS: CALCIUM 10.1 mg/dL (8.5-10.1); CARBON DIOXIDE 26 mmol/L (21-32); CHLORIDE 100 mmol/L (98-107); CREATININE 1.2 mg/dL (0.6-1.3); GLUCOSE 281 mg/dL (74-106); POTASSIUM 3.9 mmol/L (3.5-5.1); SODIUM SERUM 138 mmol/L (136-145); UREA NITROGEN, BLOOD 18 mg/dL (7-18)
[2024-01-02] MEDS ORDERED: HYDROMORPHONE 1 MG/1 ML DISP.SYRIN ONE (19:12)
[2024-01-02] MEDS ORDERED: ONDANSETRON 4 MG/2 ML VIAL ONE (19:12)
[2024-01-02 19:17] LABS: ALANINE AMINOTRANSFERASE 42 U/L (14-59); ALBUMIN 3.3 g/dL (3.4-5.0); ALKALINE PHOSPHATASE 94 U/L (50-136); ASPARTATE AMINOTRANSFERASE 16 U/L (15-37); BILIRUBIN,DIRECT 0.1 mg/dL (0.0-0.2); BILIRUBIN,TOTAL 0.4 mg/dL (0.2-1.0); NT-PRO BNP 148 pg/mL (0-125); TOTAL PROTEIN, SERUM 7.9 g/dL (6.4-8.2)
[2024-01-02 19:26] LABS: BACTERIA,URINE MANY /HPF (NONE SEEN); RBC,URINE 0-3 /HPF (0-3); SQUAMOUS EPITHELIAL CELL,UR MANY /HPF (NONE SEEN); WBC,URINE 80-100 /HPF (0-3)
[2024-01-02] MEDS: HYDROMORPHONE 1 MG/1 ML DISP.SYRIN IV ONE (19:31)
[2024-01-02] MEDS: ONDANSETRON 4 MG/2 ML VIAL IV ONE (19:31)
[2024-01-02] MEDS ORDERED: INSULIN REGULAR, HUMAN 1000 UNIT/10 ML VIAL SQ SCH (21:00)
[2024-01-02] MEDS ORDERED: REMEDY ESSENTIAL ZINC PASTE 113 GM TP PRN (21:00)
[2024-01-02] MEDS ORDERED: ACETAMINOPHEN 325 MG TABLET PO PRN (21:00)
[2024-01-02] MEDS ORDERED: ONDANSETRON 4 MG/2 ML VIAL IV PRN (21:00)
[2024-01-02 21:20] VITALS: BP 119/67; TEMP 98.3; O2SAT 95
[2024-01-02] MEDS: BLOOD SUGAR DIAGNOSTIC 1 EACH STRIP VI SCH (21:42)
[2024-01-02] MEDS ORDERED: DEXTROSE 50% 50 ML DISP.SYRIN IV PRN (21:45)
[2024-01-02] MEDS ORDERED: BLOOD SUGAR DIAGNOSTIC 1 EACH STRIP VI SCH (21:45)
[2024-01-02] MEDS ORDERED: INSULIN REGULAR, HUMAN 1000 UNIT/10 ML VIAL SQ PRN (21:45)
[2024-01-02] MEDS ORDERED: INSULIN GLARGINE,HUM 300 UNITS/3 ML CARTRIDGE SQ ONE (22:52)
[2024-01-02] MEDS: INSULIN GLARGINE,HUM 300 UNITS/3 ML CARTRIDGE SQ SCH (22:56)
[2024-01-03 06:00] VITALS: BP 110/51; TEMP 97.9; O2SAT 96
[2024-01-03] MEDS: PANTOPRAZOLE SODIUM 40 MG TABLET.DR PO SCH (06:18)
[2024-01-03] MEDS: LEVOTHYROXINE SODIUM 50 MCG TABLET PO SCH (06:18)
[2024-01-03 07:01] LABS: BASOPHILS # (AUTO) 0.1 K/UL (0.0-0.2); BASOPHILS % (AUTO) 0.6 % (0.0-2.0); EOSINOPHILS # (AUTO) 0.4 K/uL (0.0-0.7); EOSINOPHILS % (AUTO) 3.6 % (0.0-7.0); HEMATOCRIT 34.3 % (31.2-41.9); HEMOGLOBIN 11.3 g/dL (10.9-14.3); LYMPHOCYTES # (AUTO) 3.7 K/uL (0.8-4.8); LYMPHOCYTES % (AUTO) 30.4 % (20.5-51.5); MEAN CORPUSCULAR HEMOGLOBIN 26.9 uug (24.7-32.8); MEAN CORPUSCULAR HGB CONC 33 g/dL (32.3-35.6); MONOCYTES # (AUTO) 1.1 K/uL (0.1-1.30); MONOCYTES % (AUTO) 8.8 % (0.0-11.0); NEUTROPHILS # (AUTO) 6.9 K/uL (1.8-8.9); NEUTROPHILS % (AUTO) 56.6 % (38.5-71.5); PLATELET COUNT (AUTO) 329 K/uL (179-408); RED BLOOD CELL COUNT(AUTO) 4.19 MIL/uL (3.63-4.92); RED CELL DISTRIBUTION WIDTH 15.4 % (12.3-17.7); WHITE BLOOD COUNT (AUTO) 12.3 K/uL (3.8-11.8)
[2024-01-03 07:11] LABS: DIFFERENTIAL COMMENT 1
[2024-01-03 07:17] LABS: ALBUMIN 2.9 g/dL (3.4-5.0); CALCIUM 9.7 mg/dL (8.5-10.1); CREATININE 1.2 mg/dL (0.6-1.3); MAGNESIUM 1.8 mg/dL (1.8-2.4); PHOSPHOROUS 3.8 mg/dL (2.5-4.9); POTASSIUM 4.1 mmol/L (3.5-5.1)
[2024-01-03] MEDS: predniSONE 5 MG TABLET PO SCH (08:19)
[2024-01-03] MEDS: SUCRALFATE 1 G TABLET PO SCH (08:19)
[2024-01-03] MEDS: METFORMIN HCL 500 MG TABLET PO SCH (08:19)
[2024-01-03] MEDS: APIXABAN 5 MG TABLET PO SCH (08:20)
[2024-01-03] MEDS: TACROLIMUS ANHYDROUS 0.5 MG CAPSULE PO SCH ×2 (08:20→17:11)
[2024-01-03] MEDS: MYCOPHENOLATE MOFETIL 250 MG CAPSULE PO SCH (08:52)
[2024-01-03] MEDS ORDERED: TACROLIMUS ANHYDROUS 1 MG PO SCH (09:00)
[2024-01-03] MEDS ORDERED: DEXTROSE 50% 50 ML DISP.SYRIN IV PRN (10:00)
[2024-01-03 11:28] VITALS: BP 109/59; TEMP 98.5; O2SAT 90
[2024-01-03] MEDS ORDERED: BLOOD SUGAR DIAGNOSTIC 1 EACH STRIP VI SCH (11:30)
[2024-01-03] MEDS ORDERED: INSULIN REGULAR, HUMAN 1000 UNIT/10 ML VIAL SQ SCH (11:30)
[2024-01-03] MEDS: INSULIN REGULAR, HUMAN 1000 UNIT/10 ML VIAL SQ PRN (12:06)
[2024-01-03 15:22] VITALS: BP 131/67; TEMP 98.4; O2SAT 90
[2024-01-03] MEDS: LOSARTAN POTASSIUM 25 MG TABLET PO SCH (17:11)
[2024-01-03] MEDS ORDERED: Medication Not On Formulary EA (Tacrolimus Anhydrous (Prograf) 2 CAP) PO SCH (18:00)
[2024-01-03] MEDS: CEFTRIAXONE 1 G in IV DEXTROSE 5% 50 ML IV SCH (20:01)
[2024-01-03] MEDS: SIMVASTATIN 40 MG TABLET PO SCH (20:21)
[2024-01-04] VITALS (7 sets, daily range): BP systolic 123–137; BP diastolic 60–70; TEMP 97.7–98.3; O2SAT 90–97
[2024-01-04 07:16] LABS: BASOPHILS # (AUTO) 0.1 K/UL (0.0-0.2); BASOPHILS % (AUTO) 0.7 % (0.0-2.0); EOSINOPHILS # (AUTO) 0.5 K/uL (0.0-0.7); EOSINOPHILS % (AUTO) 4.3 % (0.0-7.0); HEMATOCRIT 34.1 % (31.2-41.9); HEMOGLOBIN 11.1 g/dL (10.9-14.3); LYMPHOCYTES # (AUTO) 4.1 K/uL (0.8-4.8); LYMPHOCYTES % (AUTO) 32.7 % (20.5-51.5); MEAN CORPUSCULAR HEMOGLOBIN 26.7 uug (24.7-32.8); MEAN CORPUSCULAR HGB CONC 33 g/dL (32.3-35.6); MEAN CORPUSCULAR VOLUME 82.2 fL (75.5-95.3); NEUTROPHILS # (AUTO) 6.8 K/uL (1.8-8.9); NEUTROPHILS % (AUTO) 54.3 % (38.5-71.5); PLATELET COUNT (AUTO) 313 K/uL (179-408); RED BLOOD CELL COUNT(AUTO) 4.15 MIL/uL (3.63-4.92); RED CELL DISTRIBUTION WIDTH 15.4 % (12.3-17.7); WHITE BLOOD COUNT (AUTO) 12.5 K/uL (3.8-11.8)
[2024-01-04 07:22] LABS: DIFFERENTIAL COMMENT 1
[2024-01-04 07:23] LABS: CALCIUM 9.5 mg/dL (8.5-10.1); CREATININE 1.1 mg/dL (0.6-1.3); POTASSIUM 3.8 mmol/L (3.5-5.1)
[2024-01-04] MEDS ORDERED: MEROPENEM 1 G in IV NORMAL SALINE 100 ML IV SCH (14:00)
[2024-01-04] MEDS: MEROPENEM 1 G in IV NORMAL SALINE 100 ML IV SCH (14:16)
[2024-01-04 15:12] LABS: HIV-1 p24 ANTIGEN NON REACTIVE (NONREACTIVE); HIV-1/2 ANTIBODY NON REACTIVE (NONREACTIVE)
[2024-01-04] MEDS: MELATONIN 3 MG TABLET PO SCH (21:34)
[2024-01-05 05:00] VITALS: BP 136/73; TEMP 98.3; O2SAT 98
[2024-01-05 05:08] LABS: HEPATITIS B CORE AB, TOTAL Negative (Negative); HEPATITIS B SURFACE AG Negative (Negative); HEPATITIS C VIRUS ANTIBODY Non Reactive (Non Reactive)
[2024-01-05 06:17] LABS: BASOPHILS # (AUTO) 0.1 K/UL (0.0-0.2); BASOPHILS % (AUTO) 0.4 % (0.0-2.0); EOSINOPHILS # (AUTO) 0.4 K/uL (0.0-0.7); EOSINOPHILS % (AUTO) 3.3 % (0.0-7.0); HEMATOCRIT 34.4 % (31.2-41.9); HEMOGLOBIN 11.1 g/dL (10.9-14.3); LYMPHOCYTES # (AUTO) 3.8 K/uL (0.8-4.8); LYMPHOCYTES % (AUTO) 28.3 % (20.5-51.5); MEAN CORPUSCULAR HEMOGLOBIN 26.4 uug (24.7-32.8); MEAN CORPUSCULAR HGB CONC 32 g/dL (32.3-35.6); MEAN CORPUSCULAR VOLUME 81.9 fL (75.5-95.3); MONOCYTES % (AUTO) 7.7 % (0.0-11.0); NEUTROPHILS # (AUTO) 8.1 K/uL (1.8-8.9); NEUTROPHILS % (AUTO) 60.3 % (38.5-71.5); PLATELET COUNT (AUTO) 329 K/uL (179-408); WHITE BLOOD COUNT (AUTO) 13.4 K/uL (3.8-11.8)
[2024-01-05 06:28] LABS: CALCIUM 9.3 mg/dL (8.5-10.1); CREATININE 1.1 mg/dL (0.6-1.3); POTASSIUM 3.9 mmol/L (3.5-5.1)
[2024-01-05 12:00] VITALS: BP 115/63; TEMP 97.8; O2SAT 97
[2024-01-05 15:12] VITALS: O2SAT 97
[2024-01-05 16:16] VITALS: BP 106/56; TEMP 97.6; O2SAT 94
[2024-01-05 20:22] VITALS: BP 127/58; TEMP 98.1; O2SAT 95
[2024-01-05 21:30] VITALS: O2SAT 97
[2024-01-06 06:00] VITALS: BP 118/58; TEMP 98.1; O2SAT 96
[2024-01-06 06:24] LABS: BASOPHILS # (AUTO) 0.1 K/UL (0.0-0.2); BASOPHILS % (AUTO) 0.7 % (0.0-2.0); EOSINOPHILS # (AUTO) 0.5 K/uL (0.0-0.7); EOSINOPHILS % (AUTO) 4.1 % (0.0-7.0); HEMATOCRIT 35.5 % (31.2-41.9); HEMOGLOBIN 11.4 g/dL (10.9-14.3); LYMPHOCYTES # (AUTO) 3.5 K/uL (0.8-4.8); LYMPHOCYTES % (AUTO) 28.3 % (20.5-51.5); MEAN CORPUSCULAR HEMOGLOBIN 26.3 uug (24.7-32.8); MEAN CORPUSCULAR HGB CONC 32 g/dL (32.3-35.6); MONOCYTES # (AUTO) 0.9 K/uL (0.1-1.30); MONOCYTES % (AUTO) 7.5 % (0.0-11.0); NEUTROPHILS # (AUTO) 7.4 K/uL (1.8-8.9); NEUTROPHILS % (AUTO) 59.4 % (38.5-71.5); PLATELET COUNT (AUTO) 341 K/uL (179-408); RED BLOOD CELL COUNT(AUTO) 4.33 MIL/uL (3.63-4.92); RED CELL DISTRIBUTION WIDTH 15.4 % (12.3-17.7); WHITE BLOOD COUNT (AUTO) 12.4 K/uL (3.8-11.8)
[2024-01-06 06:42] LABS: CALCIUM 9.8 mg/dL (8.5-10.1); CREATININE 0.9 mg/dL (0.6-1.3); POTASSIUM 3.7 mmol/L (3.5-5.1)
[2024-01-06 08:24] VITALS: BP 140/67; TEMP 97.3; O2SAT 97
[2024-01-06 09:10] VITALS: O2SAT 96
[2024-01-06 18:05] VITALS: BP 148/72; TEMP 98.4; O2SAT 97
[2024-01-06 19:30] VITALS: BP 122/53; TEMP 98.1; O2SAT 98
[2024-01-06 21:00] VITALS: O2SAT 96
[2024-01-07] MEDS: TEMAZEPAM 7.5 MG CAPSULE PO PRN (00:44)
[2024-01-07 06:24] LABS: BASOPHILS # (AUTO) 0.1 K/UL (0.0-0.2); BASOPHILS % (AUTO) 0.5 % (0.0-2.0); EOSINOPHILS # (AUTO) 0.5 K/uL (0.0-0.7); EOSINOPHILS % (AUTO) 4.3 % (0.0-7.0); HEMATOCRIT 35.2 % (31.2-41.9); HEMOGLOBIN 11.3 g/dL (10.9-14.3); LYMPHOCYTES # (AUTO) 3.8 K/uL (0.8-4.8); LYMPHOCYTES % (AUTO) 30.9 % (20.5-51.5); MEAN CORPUSCULAR HEMOGLOBIN 26.3 uug (24.7-32.8); MEAN CORPUSCULAR HGB CONC 32 g/dL (32.3-35.6); MONOCYTES % (AUTO) 8.1 % (0.0-11.0); NEUTROPHILS # (AUTO) 6.9 K/uL (1.8-8.9); NEUTROPHILS % (AUTO) 56.2 % (38.5-71.5); PLATELET COUNT (AUTO) 315 K/uL (179-408); RED BLOOD CELL COUNT(AUTO) 4.29 MIL/uL (3.63-4.92); WHITE BLOOD COUNT (AUTO) 12.2 K/uL (3.8-11.8)
[2024-01-07 06:45] VITALS: BP 104/53; TEMP 97.5; O2SAT 100
[2024-01-07 06:51] LABS: CALCIUM 9.4 mg/dL (8.5-10.1); CREATININE 1.1 mg/dL (0.6-1.3); POTASSIUM 3.6 mmol/L (3.5-5.1)
[2024-01-07 11:26] VITALS: BP 124/58; TEMP 97.5; O2SAT 96
[2024-01-07 15:07] VITALS: BP 128/72; TEMP 98; O2SAT 98
[2024-01-07 19:57] VITALS: BP 150/75; TEMP 98.1; O2SAT 98
[2024-01-08 06:21] VITALS: BP 114/52; TEMP 97.6; O2SAT 92
[2024-01-08 06:30] LABS: BASOPHILS # (AUTO) 0.1 K/UL (0.0-0.2); BASOPHILS % (AUTO) 0.7 % (0.0-2.0); EOSINOPHILS # (AUTO) 0.5 K/uL (0.0-0.7); EOSINOPHILS % (AUTO) 3.7 % (0.0-7.0); LYMPHOCYTES # (AUTO) 3.8 K/uL (0.8-4.8); LYMPHOCYTES % (AUTO) 30.4 % (20.5-51.5); MEAN CORPUSCULAR HEMOGLOBIN 26.6 uug (24.7-32.8); MEAN CORPUSCULAR HGB CONC 33 g/dL (32.3-35.6); MEAN CORPUSCULAR VOLUME 81.9 fL (75.5-95.3); MONOCYTES % (AUTO) 8.2 % (0.0-11.0); NEUTROPHILS # (AUTO) 7.1 K/uL (1.8-8.9); PLATELET COUNT (AUTO) 332 K/uL (179-408); RED BLOOD CELL COUNT(AUTO) 4.15 MIL/uL (3.63-4.92); WHITE BLOOD COUNT (AUTO) 12.5 K/uL (3.8-11.8)
[2024-01-08 06:42] LABS: DIFFERENTIAL COMMENT 1
[2024-01-08 07:03] LABS: CALCIUM 9.3 mg/dL (8.5-10.1); CREATININE 0.9 mg/dL (0.6-1.3); POTASSIUM 3.7 mmol/L (3.5-5.1)
[2024-01-08] MEDS ORDERED: ERTA1VIA4 IV (09:19)
[2024-01-08 11:36] VITALS: BP 110/58; TEMP 97.8; O2SAT 95
[2024-01-08 16:00] VITALS: BP 123/72; TEMP 98; O2SAT 94
== END 2024-01-08 17:15 | disposition home health service (06) | DRG 699 ==
LOC: ER 17:49 → MEDSURG3 21:14
PROVIDERS: ADMIT Nurse Practitioner Family; ATTEND Nurse Practitioner Family
PROC: 05HD33Z Insertion of Infusion Device into Right Cephalic Vein, Percutaneous Approach (ICD-10-PCS; principal; 2024-01-06)
DX: T86.13 Kidney transplant infection (principal); E44.0 Moderate protein-calorie malnutrition; N10 Acute pyelonephritis; Z16.12 Extended spectrum beta lactamase (ESBL) resistance; B96.20 Unspecified Escherichia coli [E. coli] as the cause of diseases classified elsewhere; E03.9 Hypothyroidism, unspecified; E66.9 Obesity, unspecified; K21.9 Gastro-esophageal reflux disease without esophagitis; I48.91 Unspecified atrial fibrillation; I10 Essential (primary) hypertension; E11.9 Type 2 diabetes mellitus without complications; E78.5 Hyperlipidemia, unspecified; E88.09 Other disorders of plasma-protein metabolism, not elsewhere classified; Z68.32 Body mass index [BMI] 32.0-32.9, adult; Z86.16 Personal history of COVID-19; Z79.890 Hormone replacement therapy; Z79.01 Long term (current) use of anticoagulants; Z79.84 Long term (current) use of oral hypoglycemic drugs; Z79.4 Long term (current) use of insulin; Z79.899 Other long term (current) drug therapy; Z79.624 Long term (current) use of inhibitors of nucleotide synthesis; Z87.448 Personal history of other diseases of urinary system
CPT/HCPCS: 36415; 71045; 76856; 83735; 84100; 84484; 85025; 86704; 86803; 87040; 87340; 87806; A4606; A4663; G0378; J0696; J1171; J1815; J2185; J2405; J7040; J7507; J7512; J7517

== ENCOUNTER 2024-09-19 11:49 | Emergency (ER) | payer OTHER, MEDICAID ==
[~2024-09-19] VITALS: Ht 162.6 cm; Wt 80.3 kg
[~2024-09-19 11:49] MED LIST changes: -ALBU8.5H8 INH; +ERTA1VIA4 IV; +INSU3INS6 SQ; -LISI20TA30 PO; +LOSA25TA27 PO; +METF-440 PO; -METH4TAB3 PO; +MYCO250C PO; -MYCO500T PO; +SEMA0.25 SQ; +TACR1CAP7 PO
[2024-09-19] MEDS ORDERED: HYDROCODONE/APAP 5-325MG TABLET ONE (13:34)
[2024-09-19] MEDS: HYDROCODONE/APAP 5-325MG TABLET PO ONE (13:37)
[2024-09-19 14:00] VITALS: BP 124/84
[2024-09-19 14:00] LABS: *BILIRUBIN,URIN NEGATIVE (NEGATIVE); *COLOR,URINE YELLOW (YELLOW); *KETONES,URINE NEGATIVE (NEGATIVE); *PROTEIN,URINE NEGATIVE (NEGATIVE); *UROBILINOGEN,URINE 0.2 E.U./dl (NORMAL); LEUKOCYTE ESTERASE ,URINE 1+ (NEGATIVE); NITRITE, URINE POSITIVE (NEGATIVE); UGLUCOSE NEGATIVE (NEGATIVE)
[2024-09-19 14:01] LABS: *BLOOD, URINE TRACE (NEGATIVE); *CLARITY,URINE CLOUDY (CLEAR)
[2024-09-19 14:31] LABS: SQUAMOUS EPITHELIAL CELL,UR FEW /HPF (NONE SEEN)
[2024-09-19] MEDS ORDERED: LEVO500T90 PO (15:18)
[2024-09-19] MEDS ORDERED: HYDR-3972 PO (15:18)
[2024-09-19 15:48] VITALS: BP 124/84; TEMP 97.9; O2SAT 98
== END 2024-09-19 15:49 | disposition home or self-care (01) ==
LOC: ER 11:49
DX: S30.0XXA Contusion of lower back and pelvis, initial encounter (principal); N39.0 Urinary tract infection, site not specified; E11.9 Type 2 diabetes mellitus without complications; Z79.4 Long term (current) use of insulin; Z79.01 Long term (current) use of anticoagulants; Z79.52 Long term (current) use of systemic steroids; Z79.621 Long term (current) use of calcineurin inhibitor; Z79.624 Long term (current) use of inhibitors of nucleotide synthesis; Z79.84 Long term (current) use of oral hypoglycemic drugs; Z79.85 Long-term (current) use of injectable non-insulin antidiabetic drugs; Z87.440 Personal history of urinary (tract) infections; Z88.7 Allergy status to serum and vaccine; Z94.0 Kidney transplant status; Z79.899 Other long term (current) drug therapy; W18.39XA Other fall on same level, initial encounter; Y93.89 Activity, other specified; Y92.89 Other specified places as the place of occurrence of the external cause; Y99.8 Other external cause status
CPT/HCPCS: 71250; 87077; 87086; A4606; A4663